=== PATIENT | female | born 1960 | race Hispanic/Latino ===

== ENCOUNTER 2024-11-11 09:53 | Inpatient (IN) | payer BC ==
[~2024-11-11] VITALS: Ht 152.4 cm; Wt 67.4 kg
--- NOTE | 2024-11-11 10:15 | ERN ---
General Chief Complaint: Multiple Complaints Stated Complaint: LOW BACK PAIN AND EXCESSIVE THIRST Time Seen by MD: 09:57 Source: patient History of Present Illness Initial Comments Patient is a 64-year-old female coming in complaining of feeling dehydrated. Per patient she was seen by a tree fruit and nut crops farmer and sent in for possible hydration. Patient has not been having any diarrhea nausea or vomiting. Allergies: Coded Allergies: No Known Drug Allergies (Unverified Allergy, Unknown, 11/11/24) Past Medical History Past Medical History: Arthritis, High Cholesterol, UTI Medical History Other: URINARY INCONTINENCE, RA Past Surgical History: Other, Surgical History Other: BACK SX ROS Dictation CONSTITUTIONAL: No chills, no fever, weakness, no diaphoresis, no malaise. HEAD/FACE: No signs of trauma. EENT: No eye pain, no blurred vision, no tearing, no double vision, no ear pain, no ear discharge, no nose pain, no nasal congestion, no throat pain, no throat swelling, no mouth pain. RESPIRATORY: No cough, no orthopnea, no SOB, no stridor, no wheezing. CARDIOVASCULAR: No chest pain, no edema, no palpitations, no syncope. GASTROINTESTINAL/ABDOMINAL: No abdominal pain, no constipation, no diarrhea, no nausea, no vomiting. GENITOURINARY: No abnormal discharge, no dysuria, no frequent urination, no hematuria. No complaints of pain in the genitals. MUSCULOSKELETAL: No back pain, no gout, no joint pain, no joint swelling, no muscle pain, no muscle stiffness, no neck pain. INTEGUMENTARY: No change in color, no change in hair/nails, no dryness, no lesion, no lumps, no rash. NEUROLOGICAL/PSYCH: No anxiety, not depressed, no emotional problem, no headache, no numbness, no pre-existing deficit, no history of seizures, no tremors, no weakness. HEMATOLOGIC/LYMPHATIC: Not anemic, no history of blood clots, no apparent bleeding, no bruising, glands not swollen. All Systems Negative, Except as Noted. Physical Exam Physical Exam Dictation VITAL SIGNS: Reviewed. GENERAL APPEARANCE: Alert, oriented x3, no acute distress, obese. HEAD AND FACE: Non-traumatic. EYES: PERRL, pink conjunctivas, eyelid no trauma, anterior chamber clear. EARS: Pinnas intact and no signs of trauma or erythema. Ear canals clear and no discharge. TMs no erythema. NOSE: No discharge, no bleeding. OROPHARYNX: Mouth normal, teeth no caries, tongue pink. Pharynx clear, no erythema. Tonsils no exudates, no abscesses noted. Mucous membrane moist. NECK: Supple, non-tender, no thyromegaly, no masses, no JVD, no bruits. BREAST: Deferred. CHEST: No tenderness, no crepitus, no paradoxical movement, no retractions. LUNGS: Clear, well-ventilated, symmetric, no rales, no wheezing, no rhonchi, no stridor, good breath sounds bilaterally. HEART: Regular rate, regular rhythm, no murmur, no gallops. VASCULAR: No peripheral edema. ABDOMEN: Soft, positive bowel sounds, nondistended, no guarding, nontender, no rebound, no masses no hepatomegaly, no splenomegaly, no Pate's sign, no hernias. RECTAL: Deferred. GENITAL: Deferred. NEUROLOGICAL: Normal speech, gross motor function intact, gross sensory func tion intact. MUSCULOSKELETAL: Neck nontender, full range of motion, back nontender, full range of motion. EXTREMITIES: Nontender, full range of motion. SKIN: Color pink, dry, no turgor, no rash, no lacerations, no abrasions, no contusions. LYMPHATICS: Deferred. Results Laboratory and Microbiology Lab and Micro Result Laboratory Tests Test 11/11/24 10:20 11/11/24 10:25 11/11/24 11:22 Urine Color COLORLESS (YELLOW) Urine Appearance CLEAR (CLEAR) Urine pH 5.5 (5.0-8.0) Urine Specific [place] 1.038 (1.001-1.031) Urine Protein NEGATIVE mg/dL (NEGATIVE) Urine Glucose (UA) >=1000 mg/dL (NEGATIVE) H Urine Ketones 40 mg/dL (NEGATIVE) H Urine Occult Blood NEGATIVE (NEGATIVE) Urine Nitrate NEGATIVE (NEGATIVE) Urine Bilirubin NEGATIVE mg/dL (NEGATIVE) Urine Urobilinogen 0.2 mg/dL (0.2-1.0) Urine Leukocyte Esterase 25 Andie/uL (NEGATIVE) H Urine RBC 11-25 /HPF (0-1) H Urine WBC 6-10 /HPF (0-1) H Urine Squamous Epithelial Cells RARE /HPF (0-2) Urine Bacteria RARE /HPF (None Seen) Urine Yeast RARE /HPF (None Seen) Urine Opiates Screen NEGATIVE (NEGATIVE) Urine Barbiturates Screen NEGATIVE (NEGATIVE) Urine Phencyclidine Screen NEGATIVE (NEGATIVE) Urine Amphetamines Screen NEGATIVE (NEGATIVE) Urine Benzodiazepines Screen NEGATIVE (NEGATIVE) Urine Cocaine Screen NEGATIVE (NEGATIVE) Urine Marijuana (THC) Screen NEGATIVE (NEGATIVE) White Blood Count 14.2 K/uL (4.8-10.8) H Red Blood Count 3.79 MIL/uL (4.00-5.50) L Hemoglobin 12.6 g/dL (12.0-16.0) Hematocrit 37.5 % (36-48) Mean Corpuscular Volume 98.9 fL (79-99) Mean Corpuscular Hemoglobin 33.2 pg (27.0-33.0) H Mean Corpuscular Hemoglobin Concent 33.6 g/dL (32.0-36.0) Red Cell Distribution Width 14.0 % (11.0-15.5) Platelet Count 238 K/uL (130-400) Mean Platelet Volume 11.3 fL (7.5-10.5) H Immature Granulocyte % (Auto) 1.6 % (0-1) H Neutrophils (%) (Auto) 83.5 % (40.0-77.0) H Lymphocytes (%) (Auto) 10.5 % (21.0-51.0) L Monocytes (%) (Auto) 3.8 % (3.0-13.0) Eosinophils (%) (Auto) 0.2 % (0.0-8.0) Basophils (%) (Auto) 0.4 % (0.0-5.0) Neutrophils # (Auto) 11.9 K/uL (1.8-7.7) H Lymphocytes # (Auto) 1.5 K/uL (1.0-4.8) Monocytes # (Auto) 0.5 K/uL (0.1-1.0) Eosinophils # (Auto) 0.03 K/uL (0.00-0.70) Basophils # (Auto) 0.05 K/uL (0.00-0.20) Absolute Immature Granulocyte (auto 0.23 K/uL (0-1) Nucleated Red Blood Cells 0.0 % (0.0-0.19) Sodium Level 137 mmol/L (136-145) Potassium Level 4.2 mmol/L (3.5-5.1) Chloride Level 101 mmol/L (101-111) Carbon Dioxide Level 24 mmol/L (21-32) Blood Urea Nitrogen 15 mg/dL (7-18) Creatinine 0.8 mg/dL (0.5-1.0) Glomerular Filtration Rate Calc 83 mL/min (>90) Random Glucose 570 mg/dL (70-105) *H Total Calcium 9.6 mg/dL (8.5-10.1) Total Creatine Kinase 81 U/L (21-232) Whole Blood Glucose 544 MG/DL (70-110) *H Bedside Glucose Comment Notified Nurse Labs Reviewed?: Yes MDM MDM: Differential diagnosis: Diabetes mellitus hyperglycemia, leukocytosis, generalized body weakness, Rationale: Tests considered and ordered secondary to shared decision making include: labs, ECG and radiology Previous outside records reviewed: Old ER visits. Risk of complication and/or morbidity or mortality of patient management: None Medications-Per medication reconciliation Need for hospitalization: Patient does meet criteria for hospitalization. Need for emergency major/minor surgery: No There are no social concerns with this patient. Prescription drug management Prescriptions will include symptomatic care Patient's prior external medical records from other ER visits were reviewed by me as indicated. Prior testing and results from previous visits were reviewed. Prior tests were taken into account with medical decision making and resource utilization, independent historian/historians were used to obtain complete m edical history. I independently interpreted the test that were performed, results were reviewed by me and considered findings on radiology if ordered. Medical management and examination interpretation discussions were had by me with other qualified healthcare professionals as indicated for the patient's care. Patient is a 64-year-old female coming in to be evaluated for generalized body weakness. Patient was sent by tree fruit and nut crops farmer. Patient has been taking ibuprofen and Motrin as well as Tylenol. She states that she has been feeling very weak. Laboratory workup disclose elevated glucose and mildly elevated white blood cell count. Patient was also found to have a urinary tract infection. Due to the findings patient will be admitted under the care of hospitalist group for ongoing management. Upon admission instructions patient also states that she just had bloody stool bowel movement. ED Course Orders Procedure Category Date Status Time Cbc With Differential LAB 11/11/24 Complete 10:00 Basic Metabolic Panel LAB 11/11/24 Complete 10:00 Urinalysis LAB 11/11/24 Complete W/Microscopic 10:00 Drug Screen Urine LAB 11/11/24 Complete 10:00 Creatine Kinase, Total LAB 11/11/24 Complete 10:00 Culture Urine BECCA 11/11/24 Logged 11:01 0.9%Nacl 1000ml (Ns PHA 11/11/24 Complete 1000ml) 11:30 Insulin Regular, PHA 11/11/24 Complete Human 3ml (Humulin R 11:30 Occult Blood Stool LAB 11/11/24 Logged Single Only 11:22 Ketone Blood LAB 11/11/24 Verified Quantitative 11:33 Arterial Blood Gas + RT 11/11/24 Verified 11:33 Current Medications Medications (Trade) Dose Ordered Sig/Rajani Route PRN Reason Start Time Stop Time Status Last Admin Dose Admin Insulin Human Regular (humuLIN R 100 UNIT/ML 3ML) 5 unit ONCE ONCE SQ 11/11/24 11:30 11/11/24 11:31 DC Sodium Chloride 1,000 ml @ 0 mls/hr ONCE ONCE IV 11/11/24 11:30 11/11/24 11:31 DC Vital Signs Date Time Temp Pulse Resp B/P (MAP) Pulse Ox O2 Delivery O2 Flow Rate FiO2 11/11/24 09:55 98.1 84 14 167/89 98 Room Air 0 Critical Care Note Comments Critical Care Procedure Note Authorized and Performed by: Total critical care time: Approximately 36 minutes Due to a high probability of clinically significant, life threatening deterioration, the patient required my highest level of preparedness to intervene emergently and I personally spent this critical care time directly and personally managing the patient. This critical care time included obtaining a history; examining the patient; pulse oximetry; ordering and review of studies; arranging urgent treatment with development of a management plan; evaluation of patient's response to treatment; frequent reassessment; and, discussions with other providers. This critical care time was performed to assess and manage the high probability of imminent, life-threatening deterioration that could result in multi-organ failure. It was exclusive of separately billable procedures and treating other patients and teaching time. Please see MDM section and the rest of the note for further information on patient assessment and treatment. DX & DISP Disposition: Inpatient Decision to Admit Time: 11:35 Departure Impression: Primary Impression: Uncontrolled diabetes mellitus with hyperglycemia Additional Impressions: UTI (urinary tract infection), GI bleed Condition: Stable Referrals: SELF,REFERRAL (PCP) JIM REED MD Nov 11, 2024 10:15
[2024-11-11 10:37] LABS: APPEARANCE,URINE CLEAR (CLEAR); BACTERIA,URINE RARE /HPF (None Seen); BILIRUBIN,URINE NEGATIVE (NEGATIVE); COLOR,URINE COLORLESS (YELLOW); GLUCOSE, URINE (UA) >=1000 mg/dL (NEGATIVE); KETONES,URINE 40 mg/dL (NEGATIVE); LEUKOCYTE ESTERASE ,URINE 25 Leu/uL (NEGATIVE); MUCUS,URINE RARE LPF (None Seen); NITRATE,URINE NEGATIVE (NEGATIVE); OCCULT BLOOD,URINE NEGATIVE (NEGATIVE); PH,URINE 5.5 (5.0-8.0); PROTEIN,URINE NEGATIVE (NEGATIVE); SQUAMOUS EPITHELIAL CELL,UR RARE /HPF (0-2); UROBILINOGEN,URINE 0.2 mg/dL (0.2-1.0); YEAST,URINE BUDDING RARE /HPF (None Seen)
[2024-11-11 10:38] LABS: AMPHET/METH SCREEN,URINE NEGATIVE (NEGATIVE); BARBITURATE SCREEN, URINE NEGATIVE (NEGATIVE); BENZODIAZEPINES SCREEN,URINE NEGATIVE (NEGATIVE); CANNABINOID SCREEN,URINE NEGATIVE (NEGATIVE); COCAINE SCREEN,URINE NEGATIVE (NEGATIVE); OPIATE SCREEN,URINE NEGATIVE (NEGATIVE); PHENCYCLIDINE SCREEN,URINE NEGATIVE (NEGATIVE)
[2024-11-11 10:40] LABS: BASOPHILS # (AUTO) 0.05 K/uL (0.00-0.20); BASOPHILS % (AUTO) 0.4 % (0.0-5.0); EOSINOPHILS # (AUTO) 0.03 K/uL (0.00-0.70); EOSINOPHILS % (AUTO) 0.2 % (0.0-8.0); HEMATOCRIT 37.5 % (36-48); IMMATURE GRANULOCYTE ABSOLUTE 0.23 K/uL (0-1); LYMPHOCYTES # (AUTO) 1.5 K/uL (1.0-4.8); LYMPHOCYTES % (AUTO) 10.5 % (21.0-51.0); MEAN CORPUSCULAR HEMOGLOBIN 33.2 pg (27.0-33.0); MEAN CORPUSCULAR HGB CONC 33.6 g/dL (32.0-36.0); MEAN CORPUSCULAR VOLUME 98.9 fL (79-99); MONOCYTES # (AUTO) 0.5 K/uL (0.1-1.0); MONOCYTES % (AUTO) 3.8 % (3.0-13.0); NEUTROPHILS # (AUTO) 11.9 K/uL (1.8-7.7); NEUTROPHILS % (AUTO) 83.5 % (40.0-77.0); PLATELET COUNT (AUTO) 238 K/uL (130-400); RED BLOOD CELL COUNT(AUTO) 3.79 MIL/uL (4.00-5.50); WHITE BLOOD COUNT (AUTO) 14.2 K/uL (4.8-10.8)
[2024-11-11 11:01] LABS: CREATININE 0.8 mg/dL (0.5-1.0); POTASSIUM 4.2 mmol/L (3.5-5.1)
[2024-11-11] MEDS: INSULIN humuLIN R 100 UNIT/ML 3ML SQ ONE (11:54)
[2024-11-11] MEDS: PANTOPrazole 40 MG/VIAL IVP ONE (11:59)
[2024-11-11] MEDS: 0.9%NACL 1000ML 1,000 ML IV ONE (12:00)
[2024-11-11] MEDS ORDERED: hydrALAZine 20MG/ML VIAL IV PRN (12:00)
[2024-11-11 12:15] LABS: HEMOGLOBIN A1C 10.7 % (4.0-6.0)
[2024-11-11] MEDS ORDERED: PoTASSium chloRIDE 10MEQ/100ML 100 ML IV PRN (12:30)
[2024-11-11] MEDS ORDERED: DEXTROSE 5 %-0.45 % NACL 1,000 ML IV SCH (12:30)
[2024-11-11] MEDS ORDERED: PoTASSium chloRIDE 20MEQ/10ML 20 MEQ in 0.9%NACL 1000ML 1,000 ML IV SCH (12:30)
[2024-11-11 12:35] LABS: BILIRUBIN,DIRECT 0.2 mg/dL (0.0-0.3); BILIRUBIN,TOTAL 0.7 mg/dL (0.2-1.0); MAGNESIUM 2.1 mg/dL (1.80-2.40); TOTAL PROTEIN, SERUM 7.5 g/dL (6.0-8.3)
--- NOTE | 2024-11-11 12:37 | HP ---
[facility] HISTORY [facility] PHYS[facility] Date of Service: Nov 11, 2024 Time of Service: 12:26 HISTORY OF PRESENT ILLNESS: Date of service: 11/11/2024, patient was seen in ER room 11 64-year-old male with underlying history of hyperlipidemia, rheumatoid arthritis diagnosed in 07/2024, history of overactive bladder who presented to the ER for further evaluation of generalized malaise, increased thirst, polyuria ongoing for the past several days. Patient denies previous history of type 2 diabetes mellitus. States that she is followed by Rheumatology as outpatient and was diagnosed with rheumatoid arthritis in 07/2024. She is currently maintained on outpatient regimen with methotrexate, prednisone, and hydroxychloroquine. She has been started on prednisone about a month ago. She is not sure of the dose of prednisone that she takes. Over the last several days, she has been having increased thirst and frequent urination. She also reports having history of unsteady gait ongoing since 07/2024. She denies any neck pain. She has had recurrent fall with last fall being about three weeks ago. Denies trauma to the head. With regards to underlying rheumatoid arthritis, patient does have polyarthritis especially involving the knee joint. She has a history of moderate pain requiring pain regimen with Tylenol and ibuprofen as outpatient. She denies any history of peptic ulcer disease. Today she noticed that while she was urinating, she may have had blood in the stool. She does have history of hemorrhoids as well. On presentation to hospital, patient was noted to be afebrile with T-max of 98.1 F, heart rate of 84, blood pressure of 167/89. [place] [address], hemoglobin 12.6, platelet count of 461401. BMP remarkable for sodium of 137, potassium 4.2, BUN of 15, creatinine of 0.8, blood glucose of 570, blood ketones of 2.7, lactic acid of 1.5. Patient will be admitted for further treatment and management of severe hyperglycemia in the setting of diabetic ketoacidosis likely precipitated by steroid use and underlying history of untreated type 2 diabetes mellitus. Patient will be admitted to ICU and will be placed on insulin drip. Consultation with endocrinology and critical Care will be requested. We will monitor closely for any signs of GI bleeding as well. REVIEW OF SYSTEMS CONSTITUTIONAL: Generalized fatigue, debility NEUROLOGICAL: Denies headache, amaurosis fugax, motor weakness, sensory deficit, vertigo/spinning sensation, gait abnormalities, or tremors. ENT: No hearing loss, otalgia, otorrhea, rhinitis, rhinorrhea, hoarseness, or sore throat. CARDIOVASCULAR: Denies any exertional angina, dyspnea on exertion, orthopnea, paroxysmal nocturnal dyspnea, palpitations, life-threatening arrhythmias, claudication. PULMONARY: Denies any shortness of breath, cough, phlegm/sputum, hemoptysis, pleuritic chest pain. SLEEP: Denies morning headaches, daytime somnolence or napping. Denies difficulty falling asleep, staying asleep, waking from sleep. Denies knowledge of snoring. GASTROINTESTINAL: Possible hematochezia today GENITOURINARY: Denies frequency, urgency, nocturia, hematuria or incontinence (Storage/Irritative symptoms.) Low urinary stream, straining to void, urinary intermittency or hesitancy, splitting of the voiding stream, terminal dribbling. ENDOCRINOLOGIC: Urinary frequency, urgency, increased thirst HEMATOLOGIC: Denies thrombophilia/previous clots, or coagulopathy/bleeding disorders. ONCOLOGIC: Denies personal history of malignancy. DERMATOLOGIC: Denies rashes or pruritus. PSYCHIATRIC: Denies any suicidal or homicidal ideation. Denies hallucinations. PAST MEDICAL HISTORY: Hyperlipidemia, rheumatoid arthritis diagnosed in 07/2024, history of chronic pain secondary to rheumatoid arthritis, PAST SURGICAL HISTORY: in 1981 and 1984 PAST SOCIAL HISTORY: Currently denies active smoking or alcohol consumption FAMILY HISTORY: Reports family history of diabetes in the family Allergies: No known drug allergies Home medications: Patient did not bring any of her home medications, reports she has been maintained on outpatient treatment with prednisone, methotrexate, hydroxychloroquine, atorvastatin, she uses Tylenol and ibuprofen for pain for about a year Coded Allergies: No Known Drug Allergies (Unverified Allergy, Unknown, 11/11/24) PHYSICAL EXAM GENERAL APPEARANCE: The patient is awake, alert, and oriented, in no acute cardiopulmonary distress. NEUROLOGICAL: Cranial nerves II-XII grossly intact. Neurological examination is nonfocal HEENT: Face is symmetric. Pupils are equal and reactive. Extraocular movements are intact. NECK: Supple. No JVD. No thyromegaly. No submental, submandibular, pre- /postauricular, occipital or supraclavicular lymphadenopathy. CHEST: Normal chest expansion. No Telemetry. LUNGS: Absence of any rales, rhonchi or any wheezing. CARDIOVASCULAR: Regular. S1 and S2 normal. No appreciable rubs, murmurs or gallops. ABDOMEN: Soft, nontender, and nondistended. There is no rebound, voluntary g uarding, or rigidity. : Deferred. No Neil. EXTREMITIES: She has scattered bruising involving the bilateral upper extremities Vital Sign (Last 24 Hours) 11/11/24 11:35 Temp 98.2 Pulse 76 Resp 19 B/P (MAP) 174/84 Pulse Ox 99 O2 Delivery Room Air* O2 Flow Rate 0 FiO2 21 LABS: Laboratory: Test 11/11/24 11:38 11/11/24 11:22 11/11/24 10:25 11/11/24 10:20 Range/Units Hemoglobin A1c 10.7 H 4.0-6.0 % Estimated Average Glucose (eAG) 260 H 70-126 mg/dL Whole Blood Ketones Quantitative 2.7 H 0.0-0.6 mmol/L Lactic Acid Level 1.5 0.8-2.5 mmol/L Whole Blood Glucose 544 *H 70-110 MG/DL Bedside Glucose Comment Notified Nurse White Blood Count 14.2 H 4.8-10.8 K/uL Red Blood Count 3.79 L 4.00-5.50 MIL/uL Hemoglobin 12.6 12.0-16.0 g/dL Hematocrit 37.5 36-48 % Mean Corpuscular Volume 98.9 79-99 fL Mean Corpuscular Hemoglobin 33.2 H 27.0-33.0 pg Mean Corpuscular Hemoglobin Concent 33.6 32.0-36.0 g/dL Red Cell Distribution Width 14.0 11.0-15.5 % Platelet Count 238 130-400 K/uL Mean Platelet Volume 11.3 H 7.5-10.5 fL Immature Granulocyte % (Auto) 1.6 H 0-1 % Neutrophils (%) (Auto) 83.5 H 40.0-77.0 % Lymphocytes (%) (Auto) 10.5 L 21.0-51.0 % Monocytes (%) (Auto) 3.8 3.0-13.0 % Eosinophils (%) (Auto) 0.2 0.0-8.0 % Basophils (%) (Auto) 0.4 0.0-5.0 % Neutrophils # (Auto) 11.9 H 1.8-7.7 K/uL Lymphocytes # (Auto) 1.5 1.0-4.8 K/uL Monocytes # (Auto) 0.5 0.1-1.0 K/uL Eosinophils # (Auto) 0.03 0.00-0.70 K/uL Basophils # (Auto) 0.05 0.00-0.20 K/uL Absolute Immature Granulocyte (auto 0.23 0-1 K/uL Nucleated Red Blood Cells 0.0 0.0-0.19 % Sodium Level 137 136-145 mmol/L Potassium Level 4.2 3.5-5.1 mmol/L Chloride Level 101 101-111 mmol/L Carbon Dioxide Level 24 21-32 mmol/L Blood Urea Nitrogen 15 7-18 mg/dL Creatinine 0.8 0.5-1.0 mg/dL Glomerular Filtration Rate Calc 83 >90 mL/min Random Glucose 570 *H 70-105 mg/dL Total Calcium 9.6 8.5-10.1 mg/dL Total Creatine Kinase 81 21-232 U/L Urine Color COLORLESS YELLOW Urine Appearance CLEAR CLEAR Urine pH 5.5 5.0-8.0 Urine Specific [place] 1.038 H 1.001-1.031 Urine Protein NEGATIVE NEGATIVE mg/dL Urine Glucose (UA) >=1000 H NEGATIVE mg/dL Urine Ketones 40 H NEGATIVE mg/dL Urine Occult Blood NEGATIVE NEGATIVE Urine Nitrate NEGATIVE NEGATIVE Urine Bilirubin NEGATIVE NEGATIVE mg/dL Urine Urobilinogen 0.2 0.2-1.0 mg/dL Urine Leukocyte Esterase 25 H NEGATIVE Andie/uL Urine RBC 11-25 H 0-1 /HPF Urine WBC 6-10 H 0-1 /HPF Urine Squamous Epithelial Cells RARE 0-2 /HPF Urine Bacteria RARE None Seen /HPF Urine Yeast RARE None Seen /HPF Urine Opiates Screen NEGATIVE NEGATIVE Urine Barbiturates Screen NEGATIVE NEGATIVE Urine Phencyclidine Screen NEGATIVE NEGATIVE Urine Amphetamines Screen NEGATIVE NEGATIVE Urine Benzodiazepines Screen NEGATIVE NEGATIVE Urine Cocaine Screen NEGATIVE NEGATIVE Urine Marijuana (THC) Screen NEGATIVE NEGATIVE Current Medications Medications (Trade) Dose Ordered Sig/Rajani Route PRN Reason Start Time Stop Time Status Last Admin Dose Admin Acetaminophen (TYLenol 325MG TAB) 650 mg Q6H PRN PO MILD PAIN (1-3) 11/11/24 12:00 12/11/24 11:59 Ceftriaxone Sodium (ROCEphine 1G INJ) 1 gm DAILY IVPB 11/12/24 09:00 11/22/24 08:59 Dextrose/Sodium Chloride 1,000 ml @ 0 mls/hr AD IV 11/11/24 12:30 12/11/24 12:29 UNV Enoxaparin Sodium (Lovenox) 30 mg DAILY SQ 11/12/24 09:00 11/11/24 12:04 DC Hydralazine HCl (APRESOLine 20MG INJ) 10 mg Q6H PRN IV ADMINISTER FOR SBP > 170 11/11/24 12:00 12/11/24 11:59 Insulin Human Regular (humuLIN R 100 UNIT/ML 3ML) INSULIN SLIDING SCAL... ACHS SQ 11/11/24 16:30 11/11/24 12:06 DC Insulin Human Regular (humuLIN R 100 UNIT/ML 3ML) INSULIN SLIDING SCAL... ACHS SQ 11/11/24 16:30 11/11/24 12:22 DC Insulin Human Regular 100 unit/ Sodium Chloride 101 ml @ 0 mls/hr PROTOCOL IV 11/11/24 12:30 12/11/24 12:29 UNV Magnesium Sulfate 50 ml @ 0 mls/hr PROTOCOL IV 11/11/24 12:30 12/11/24 12:29 UNV Multivitamins Therapeutic (Multivitamin Tablet) 1 tab DAILY PO 11/12/24 09:00 12/12/24 08:59 Ondansetron HCl (zoFRAN 4MG INJ) 4 mg Q6H PRN IVP NAUSEA/VOMITING 11/11/24 12:00 12/11/24 11:59 Pantoprazole Sodium (PROTonix 40MG INJ) 40 mg BID IVP 11/11/24 21:00 12/11/24 20:59 Potassium Chloride 20 meq/ Sodium Chloride 1,010 ml @ 0 mls/hr PROTOCOL IV 11/11/24 12:30 12/11/24 12:29 UNV Potassium Chloride/Dextrose/ Sod Cl 1,000 ml @ 0 mls/hr AD IV 11/11/24 12:30 12/11/24 12:29 UNV Potassium Chloride 100 ml @ 0 mls/hr PROTOCOL PRN IV DKA POTASSIUM REPLACEMENT 11/11/24 12:30 12/11/24 12:29 UNV Sodium Chloride 1,000 ml @ 75 mls/hr [id number] IV 11/11/24 12:00 12/11/24 11:59 Sodium Chloride 1,000 ml @ 200 mls/hr PROTOCOL IV 11/11/24 12:30 12/11/24 12:29 UNV DIAGNOSTICS / RADIOLOGY: Chest x-ray and CT head without contrast is pending ASSESSMENT: Severe hyperglycemia with diabetic ketoacidosis, POA History of uncontrolled type 2 diabetes mellitus, POA 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, POA Leukocytosis, POA Urinary tract infection, mild, POA History of rheumatoid arthritis maintained on outpatient methotrexate, POA Rule out hematochezia, POA History of hemorrhoids, POA Hyperlipidemia, POA Elevated blood pressure, POA History of recurrent falls, POA History of NSAID use as outpatient for pain control, POA PLAN: 64-year-old female with history of rheumatoid arthritis and use of prednisone as outpatient presenting with severe hyperglycemia with elevated blood ketones, ketonuria, concerning for diabetic ketoacidosis Patient will be admitted to ICU We will initiate patient on insulin drip and IV fluid resuscitation per DKA protocol BMP will be checked q.4 hours, potassium and magnesium will be aggressively repleted Consultation with critical Care will be requested Prednisone will be held today until sugars improve Patient's case was discussed with Dr. Florian with endocrinology, appreciate recommendations We will keep patient on IV Rocephin for management of urinary tract infection Patient reports having history of recurrent falls since 07/2024 with gait unsteadiness, last fall was three weeks ago, denies any head trauma, denies any neck pain or cervical radiculopathy, we will follow up with CT head without contrast to rule out any intracranial process, we will request consultation with Physical therapy tomorrow We will keep patient on IV Protonix 40 mg b.i.d., patient reports that she might have been having blood in the stool, we will check stool for occult blood, she has a history of hemorrhoids, she also takes ibuprofen intermittently for pain control for about a year, denies previous history of peptic ulcer disease, may consider GI evaluation this admission, discussed with patient avoid any NSAID use especially when she is taking prednisone as well H&H will be monitored closely We will keep patient on DVT prophylaxis with SCDs, once GI bleeding is ruled out, we can consider starting pharmacologic DVT prophylaxis All labs will be repeated in the morning Patient denies previous history of hypertension, blood pressure is noted to be elevated in the ER, we will keep an eye on blood pressure trend during hospital course, if continues to be elevated, we will start antihypertensive therapy Plan of Care was discussed with patient and family at bedside, Jose Davidson MD Prognosis is guarded for the patient, Jose Davidson MD Advanced Care Planning: Which of the following were discussed: Hospice care: Yes __ No X__ Therapeutic options: Yes _X_ No __ Advance directives: Yes _X_ No __ Other discussions: Discussed with who?: Patient Voluntary nature of this service was explained to the patient? Yes _x_ No __ Amount of time spent: 20 minutes JOSE DAVIDSON MD Nov 11, 2024 12:37
[2024-11-11] MEDS: acetaMINOPHEN 325 MG TAB PO PRN (12:39)
[2024-11-11] MEDS: cefTRIAXone 1G VIAL IVPB ONE (12:40)
[2024-11-11] MEDS: 0.9%NACL 1000ML 1,000 ML IV SCH ×2 (12:40→15:51)
[2024-11-11] MEDS ORDERED: OXYB10TA30 PO (13:00)
[2024-11-11] MEDS ORDERED: METH2.5T6 PO (13:00)
[2024-11-11] MEDS ORDERED: PRED5TAB PO (13:00)
[2024-11-11] MEDS ORDERED: FOLI0.4T6 PO (13:00)
[2024-11-11] MEDS ORDERED: ATOR20TA65 PO (13:00)
[2024-11-11] MEDS ORDERED: HYDR200T75 PO (13:00)
--- NOTE | 2024-11-11 13:21 | NUR ---
HOME MEDS ENTERED, ONLY ONE MISSING IS ALBUTEROL INHALER
--- NOTE | 2024-11-11 13:41 | HMCIMG ---
CHEST 1VW HISTORY: Developing pneumonia COMPARISON: None FINDINGS: A frontal projection of the chest was obtained. Mild bilateral pulmonary infiltrates are seen may be related to mild pulmonary vascular congestion with possible superimposed pneumonitis. The heart is borderline enlarged. Degenerative changes are seen. No evidence of aortic calcification is seen. IMPRESSION: 1. Mild bilateral pulmonary infiltrates are seen may be related to mild pulmonary vascular congestion with possible superimposed pneumonitis.
--- NOTE | 2024-11-11 13:47 | NUR ---
DCP: HOME Pt currently lives with her mother. Pt does not have any DME, home health, or provider services. Pt states in the mornings when she wakes up she uses a walking stick for about "an hour to warm up" and then is ok. Pt states that she can complete ADLs independently. PCP is Dr. Loreta Cespedes and uses [facility] for any RX needs. At [place] pt will go home and family will assist with transportation. Addendum: 11/11/24 at 1350 by YADIEL BEARDEN SS Amended: Links added.
--- NOTE | 2024-11-11 13:51 | HMCIMG ---
CT HEAD/BRAIN W/O CONTRAST HISTORY: Recurrent falls COMPARISON: None TECHNIQUE: Multiple sequential axial images of the head were obtained from the base of the skull through vertex. Patient was not given contrast through intravenous route. FINDINGS: The ventricles and extraventricular CSF spaces are nondilated for patient's age. There is no midline shift, mass effect or herniation. No acute intracranial bleed is seen. Left maxillary sinus changes are seen with mucoperiosteal thickening and air-fluid level. Bilateral basal ganglia calcifications are seen. IMPRESSION: 1. No acute intracranial bleed is seen. CT was performed with one or more following dose reduction techniques: automated exposure control, adjustment of the mA and kv according to patient's size, or use of a iterative reconstruction technique.
[2024-11-11 14:42] LABS: CREATININE 0.5 mg/dL (0.5-1.0); POTASSIUM 3.7 mmol/L (3.5-5.1)
[2024-11-11 14:54] LABS: INR 1.13 (0.85-1.15); PROTHROMBIN TIME 11.8 SEC (9.6-11.6)
[2024-11-11 15:07] LABS: ABG BASE EXCESS -4.4 mmol/L (-2.0-3.0); ABG HCO3 18.3 mmol/L (21.0-28.0); ABG OXYGEN SATURATION 97.8 % (94.0-98.0); ABG PCO2 28 mmHg (32-45); ABG PH 7.431 (7.350-7.450); PO2, ARTERIAL BG 98.9 mmHg (83.0-108.0); VENT MODE, BG RA (ROOM AIR)
[2024-11-11] MEDS: INSULIN REGULAR, HUMAN 3ML 100 UNIT in 0.9%NACL 100ML 100 ML IV SCH (15:51)
[2024-11-11] MEDS ORDERED: INSULIN humuLIN R 100 UNIT/ML 3ML SQ SCH ×2 (16:30)
[2024-11-11 17:49] LABS: PARTIAL THROMBOPLASTIN TIME 21.6 SEC (26.3-35.5)
[2024-11-11] MEDS: D5W-1/2 NS/20MEQ KCL 1,000 ML IV SCH (18:38)
[2024-11-11 19:07] LABS: CREATININE 0.4 mg/dL (0.5-1.0); POTASSIUM 3.4 mmol/L (3.5-5.1)
--- NOTE | 2024-11-11 19:52 | CONS ---
[facility] CONSULTATION NOTE Date Patient Seen: Nov 11, 2024 Time of Visit: 19:44 Supervising Physician: DR. RACHEL GARCIA Reason for Consultation: CRITICAL CARE MANAGEMENT Primary Care Physician: DR. DEREK FERNANDEZ Outpatient Specialists: [ ] Inpatient Consults: [ ] PROBLEM LIST: 1. DIABETIC KETOACIDOSIS, POA 2. ACUTE COMPLICATED CYSTITIS, POA 3. UTI, P.O.A 4. ESSENTIAL HYPERTENSION POA HPI: Patient is a 64-year-old female with past medical history rheumatoid arthritis, hyperlipidemia, and a surgical history of x2, right foot fracture repair, presented to emergency department complaining of generalized body weakness for two days. Patient reports that for the past two days, she has been experiencing generalized body weakness. Patient denies fever, chills, nausea, vomiting, diarrhea, cough, chest pain, dizziness, or any other symptoms. The workup in the emergency department showed blood pressure 167/89, WBC of 14.2, ESR of 37, potassium of 3.4, glucose of 269, ketone 2.7, calculated anion gap of 16.7. In the emergency department, patient was diagnosed with DKA and was started on insulin drip and IV fluid. In addition, career based intervention coordinator and critical Care have been consulted. Patient will be admitted in ICU for further evaluation and treatment. PAST MEDICAL HX: see above PAST SURGICAL HX: noncontributory SOCIAL HISTORY: No tobacco, ETOH, or illicit drug use Coded Allergies: No Known Drug Allergies (Unverified Allergy, Unknown, 11/11/24) REVIEW OF SYSTEMS: 12 point ROS reviewed with patient. Pertinent positives mentioned above. Otherw ise negative. PHYSICAL EXAM: GENERAL: alert, weak, awake oriented x 3 HEENT: EOMI, Sclera non icteric, moist mucosa NECK: Supple, no JVD, trachea midline LUNGS: Clear breath sounds bilaterally. No wheezes HEART: Regular rate and rhythm. Normal S1 and S2, without murmurs ABD: Abdomen soft, nontender. Bowel sounds present EXT: No clubbing cyanosis or edema NEURO: Alert and oriented to person, follows commands Vital Signs (last 8hr) Date Time Temp Pulse Resp B/P (MAP) Pulse Ox O2 Delivery O2 Flow Rate FiO2 11/11/24 17:45 98.2 65 15 178/69 99 Room Air* 0 21 LABS: Hematology Labs: Test 11/11/24 14:13 11/11/24 11:38 11/11/24 10:25 Range/Units Hemoglobin 11.5 L 12.0-16.0 g/dL Hematocrit 34.0 L 36-48 % Erythrocyte Sedimentation Rate 37 H 0-30 MM/HR White Blood Count 14.2 H 4.8-10.8 K/uL Red Blood Count 3.79 L 4.00-5.50 MIL/uL Mean Corpuscular Volume 98.9 79-99 fL Mean Corpuscular Hemoglobin 33.2 H 27.0-33.0 pg Mean Corpuscular Hemoglobin Concent 33.6 32.0-36.0 g/dL Red Cell Distribution Width 14.0 11.0-15.5 % Platelet Count 238 130-400 K/uL Mean Platelet Volume 11.3 H 7.5-10.5 fL Immature Granulocyte % (Auto) 1.6 H 0-1 % Neutrophils (%) (Auto) 83.5 H 40.0-77.0 % Lymphocytes (%) (Auto) 10.5 L 21.0-51.0 % Monocytes (%) (Auto) 3.8 3.0-13.0 % Eosinophils (%) (Auto) 0.2 0.0-8.0 % Basophils (%) (Auto) 0.4 0.0-5.0 % Neutrophils # (Auto) 11.9 H 1.8-7.7 K/uL Lymphocytes # (Auto) 1.5 1.0-4.8 K/uL Monocytes # (Auto) 0.5 0.1-1.0 K/uL Eosinophils # (Auto) 0.03 0.00-0.70 K/uL Basophils # (Auto) 0.05 0.00-0.20 K/uL Absolute Immature Granulocyte (auto 0.23 0-1 K/uL Nucleated Red Blood Cells 0.0 0.0-0.19 % Chemistry Labs: Test 11/11/24 19:35 11/11/24 18:15 11/11/24 14:13 11/11/24 11:38 Range/Units Whole Blood Glucose 170 H 70-110 MG/DL Sodium Level 142 136-145 mmol/L Potassium Level 3.4 L 3.5-5.1 mmol/L Chloride Level 107 101-111 mmol/L Carbon Dioxide Level 25 21-32 mmol/L Blood Urea Nitrogen 11 7-18 mg/dL Creatinine 0.4 L 0.5-1.0 mg/dL Glomerular Filtration Rate Calc 111 >90 mL/min Random Glucose 181 H 70-105 mg/dL Total Calcium 8.1 L 8.5-10.1 mg/dL B-Type Natriuretic Peptide 17 0-100 pg/mL Hemoglobin A1c 10.7 H 4.0-6.0 % Estimated Average Glucose (eAG) 260 H 70-126 mg/dL Whole Blood Ketones Quantitative 2.7 H 0.0-0.6 mmol/L Lactic Acid Level 1.5 0.8-2.5 mmol/L Magnesium Level 2.10 1.80-2.40 mg/dL Total Bilirubin 0.7 0.2-1.0 mg/dL Direct Bilirubin 0.2 0.0-0.3 mg/dL Aspartate Amino Transf (AST/SGOT) 25 10-37 U/L Alanine Aminotransferase (ALT/SGPT) 49 12-78 U/L Alkaline Phosphatase 119 50-136 U/L Lactate Dehydrogenase 417 H 81-234 U/L C-Reactive Protein, Quantitative 28.40 H 0.5-3.0 mg/L Total Protein 7.5 6.0-8.3 g/dL Albumin 4.0 3.5-5.0 g/dL Procalcitonin < 0.05 L 0.05-0.5 ng/mL Test 11/11/24 11:22 11/11/24 10:25 Range/Units Bedside Glucose Comment Notified Nurse Total Creatine Kinase 81 21-232 U/L Coagulation Labs: Test 11/11/24 14:13 Range/Units Prothrombin Time 11.8 H 9.6-11.6 SEC Prothromb Time International Ratio 1.13 0.85-1.15 Activated Partial Thromboplast Time 21.6 L 26.3-35.5 SEC DIAGNOSTICS / RADIOLOGY RESULTS: [ ] PLAN NEURO: Minimize central acting medications as possible. Fall Precautions. Well lighted room through the day and minimize interruptions through the night to prevent acute delirium. PULMONARY: Supplemental 02 as needed Titrate Fio2 to keep Spo2 > or = 90% DuoNebs and CPT as needed IS hourly while awake for pulmonary hygiene Out of bed to chair as tolerated VAP Bundle Vent/BIPAP Settings: [ ] Driving pressure: [ ] P Plat: [ ] Static C: [ ] Static R: [ ] P/F Ratio: [ ] CARDIOVASCULAR: Follow hemodynamics. Titrate vasopressor to keep MAP >65 or systolic blood pressure >95mmHg DIPS: [ ] LINES: [ ] GI & NUTRITION: Continue nutritional support Aspirations precautions Prokinetic agents and laxatives as needed KIDNEYS & ELECTROLYTES: Strict monitoring of intake and output Daily weights Avoid nephrotoxic agents Monitor electrolytes and replace as needed Goal urine output of 30mL/hr or 0.5mL/kg/hr Urine output: [ ] Fluid Balance: [ ] ENDOCRINE: Maintain blood glucose between 100-180 at all times. Insulin sliding scale for blood glucose management Concerning insulin drip until gap is closed INFECTIOUS DISEASE: Trend temperature. Nugent-culture if febrile. Micro: [ ] Antibiotics: Ceftriaxone 2 g IV daily HEMATOLOGY & COAGULATION: Monitor H&H. Keep Hgb > 7 Transfuse 1 unit of PRBC for Hgb < 7 Transfuse 1 pack of platelets of platelets < 20, 000 Watch for any signs and symptoms of bleeding SKIN: Pressure ulcer prevention per facility protocol Rehab: PT/OT Prophylaxis: GI: Famotidine DVT: SCDs Code Status: Full Resuscitation Disposition: Admitted in ICU Other: Total patient care time exceeds 35 minutes excluding all procedures. Case was discussed and seen with my supervising physician, Dr.Jairo Garcia. The above plan was formulated and agreed upon. RACHEAL WILLIS Nov 11, 2024 19:52
[2024-11-11] MEDS ORDERED: PoTASSium chl 10% ELIXIR 20MEQ 20 MEQ/15 ML UDCUP PO PRN (20:00)
[2024-11-11] MEDS: PANTOPrazole 40 MG/VIAL IVP SCH (21:01)
--- NOTE | 2024-11-11 21:48 | NUR ---
HAND OFF REPORT GIVEN TO LISA TAYOLR. ROOM IS DIRTY AT THE MOMENT, ICU NURSE WILL CALL WHEN ROOM IS READY.
[2024-11-11 22:08] LABS: HEMATOCRIT 30.3 % (36-48)
[2024-11-11 22:22] LABS: CREATININE 0.5 mg/dL (0.5-1.0); POTASSIUM 3.6 mmol/L (3.5-5.1)
[2024-11-11 22:52] VITALS: BP 157/75; PULSE 72; RESP 18; TEMP 98.6
[2024-11-12] VITALS (27 sets, daily range): BP systolic 132–164; BP diastolic 57–83; PULSE 69–89; RESP 12–29; TEMP 97.7–98.7; O2SAT 96–98
--- NOTE | 2024-11-12 | NUR ---
Paged benchmark regarding patients pain. Patient is stating that her skin is very sensitive. When blood pressure cuff cycles she states that pain is 10 out 10. She describes when I use the lancets to check her blood sugar as "being rough". Addendum: 11/12/24 at 0007 by LISA BERTRAND RN RN Spoke to Noemy Montiel NP from critical care. Provider ordered Toradol IV q6hr prn for break through pain.
[2024-11-12] MEDS: ketOROlac 15MG/ML VIAL (15MG/ML) IV PRN (00:20)
[2024-11-12] MEDS: PoTASSium chloRIDE 20MEQ ER 20 MEQ ERTAB PO PRN (00:21)
[2024-11-12 01:09] LABS: BASOPHILS # (AUTO) 0.03 K/uL (0.00-0.20); BASOPHILS % (AUTO) 0.3 % (0.0-5.0); EOSINOPHILS # (AUTO) 0.08 K/uL (0.00-0.70); EOSINOPHILS % (AUTO) 0.8 % (0.0-8.0); HEMATOCRIT 29.4 % (36-48); IMMATURE GRANULOCYTE ABSOLUTE 0.15 K/uL (0-1); LYMPHOCYTES # (AUTO) 2.6 K/uL (1.0-4.8); LYMPHOCYTES % (AUTO) 25.1 % (21.0-51.0); MEAN CORPUSCULAR HEMOGLOBIN 33.6 pg (27.0-33.0); MEAN CORPUSCULAR HGB CONC 34.4 g/dL (32.0-36.0); MEAN CORPUSCULAR VOLUME 97.7 fL (79-99); MONOCYTES # (AUTO) 0.5 K/uL (0.1-1.0); MONOCYTES % (AUTO) 4.9 % (3.0-13.0); NEUTROPHILS # (AUTO) 6.9 K/uL (1.8-7.7); NEUTROPHILS % (AUTO) 67.4 % (40.0-77.0); PLATELET COUNT (AUTO) 188 K/uL (130-400); RED BLOOD CELL COUNT(AUTO) 3.01 MIL/uL (4.00-5.50); RED CELL DISTRIBUTION WIDTH 14.1 % (11.0-15.5); WHITE BLOOD COUNT (AUTO) 10.2 K/uL (4.8-10.8)
[2024-11-12 01:23] LABS: CREATININE 0.4 mg/dL (0.5-1.0); MAGNESIUM 1.5 mg/dL (1.80-2.40); POTASSIUM 3.3 mmol/L (3.5-5.1)
[2024-11-12] MEDS: MAGNESIUM 2GM PREMIX 50ML 50 ML IV SCH (01:39)
[2024-11-12 06:09] LABS: HEMATOCRIT 29.5 % (36-48); MEAN CORPUSCULAR HEMOGLOBIN 33.1 pg (27.0-33.0); MEAN CORPUSCULAR HGB CONC 33.6 g/dL (32.0-36.0); MEAN CORPUSCULAR VOLUME 98.7 fL (79-99); RED BLOOD CELL COUNT(AUTO) 2.99 MIL/uL (4.00-5.50); WHITE BLOOD COUNT (AUTO) 10.4 K/uL (4.8-10.8)
--- NOTE | 2024-11-12 06:15 | NUR ---
PATIENT HAS SAMPLE CONTAINER AT BEDSIDE FOR OCCULT STOOL. PATIENT INSTRUCTED TO GIVE SAMPLE WHEN SHE HAS A BOWEL MOVEMENT.
[2024-11-12 06:17] LABS: CREATININE 0.4 mg/dL (0.5-1.0); MAGNESIUM 2.1 mg/dL (1.80-2.40); POTASSIUM 3.9 mmol/L (3.5-5.1)
[2024-11-12] MEDS: FOLic ACID 1 MG TABLET PO SCH (08:03)
[2024-11-12] MEDS: hydroXYCHLOroquine SULFate 200 MG TAB PO SCH (08:03)
[2024-11-12] MEDS: MULTIVITAMIN TABLET PO SCH (08:03)
[2024-11-12] MEDS: predniSONE 5 MG TABLET PO SCH (08:03)
[2024-11-12] MEDS: atorVAStatin 20 MG TABLET PO SCH (08:03)
[2024-11-12] MEDS: cefTRIAXone 1G VIAL IVPB SCH (08:06)
[2024-11-12] MEDS ORDERED: ENOXAPARIN SODIUM 30 MG/0.3 ML SQ SCH (09:00)
--- NOTE | 2024-11-12 09:38 | CONS ---
GASTROENTEROLOGY CONSULTATION NOTE Date of Consultation: Nov 12, 2024 Time of Consultation: 09:38 History of Present Illness: [ This is a 64-year-old male with past medical history of hyperlipidemia rheumatoid arthritis history of overactive bladder status post falls in July who presented to the ER for generalized malaise increased thirst and polyuria for several day. Patient has history of type [address] was ordered with no acute intracranial bleed; chest CT shows mild pulmonary bilateral infiltrates may be related to mild pulmonary vascular congestion with possible superimposed pneumonitis. WBC 14.2 and trending down to 10.4; HGB 12.6 and trending down to 9.9 today; Platelets 238 on admission and trending down to 198 today. PT at 11.8 INR normal at 1.13. HGB A1C 10.7] Review of Systems: CONSTITUTIONAL: No malaise or change in sensation of wellbeing. ENMT: No rhinorrhea, otorrhea, sinus pain, ear ache. CARDIOVASCULAR: No angina, palpitations, orthopnea or paroxysmal dyspnea. RESPIRATORY: No SOB. GASTROINTESTINAL: No abdominal pain, nausea, vomiting, diarrhea, hematemesis, melena or change in the patient's habitual bowel movements consistency/number. GENITOURINARY: No dysuria, hematuria or change in bladder continence. MUSCULOSKELETAL: No new muscle pain or decrease in muscular strength. No new joint swelling, redness or tenderness. SKIN: No new rash. PAST MEDICAL HISTORY: Hyperlipidemia, rheumatoid arthritis diagnosed in 07/2024, history of chronic pain secondary to rheumatoid arthritis, PAST SURGICAL HISTORY: in 1981 and 1984 PAST SOCIAL HISTORY: Currently denies active smoking or alcohol consumption FAMILY HISTORY: Reports family history of diabetes in the family Coded Allergies: No Known Drug Allergies (Unverified Allergy, Unknown, 11/11/24) Physical Exam: GEN: Awake, alert, oriented in person, time and place, and in no acute distress. HEENT: No sinus tenderness. Tympanic membranes were not examined. No rhinorrhea. Oral pharyngeal mucosa is pink, moist and within normal limits. Neck is supple with no cervical lymphadenopathy, thyromegaly or JVD. CHEST: Inspection, palpation and percussion of the chest were unremarkable. Lung auscultation revealed normal breath sounds bilaterally. CARDIAC: PMI is within normal limits. Heart sounds are regular. Normal S1, S2. No gallop or murmur. ABD: Soft, non-tender and not distended. No peritoneal signs on palpation. No organomegaly. Normal bowel sounds. EXT: No cyanosis or clubbing. No edema. SKIN: Intact. No rashes. JOINTS: No evidence of synovitis or acute arthritis. NEURO: Alert and oriented to name, place and person. Cranial nerve examination is unremarkable. No focal motor deficits. Normal speech. Gait is normal. Strength is normal. Vital Sign (Last 24 Hours) 11/12/24 11/12/24 11/12/24 04:00 04:46 06:57 Temp 97.7 Pulse 82 Resp 14 B/P (MAP) 147/65 (92) Pulse Ox 99 O2 Delivery Room Air* O2 Flow Rate 0 FiO2 21 Intake & Output (last 24hrs) 11/11/24 11/11/24 11/12/24 15:00 23:00 07:00 Intake Total 351.0 ml 1287.0 ml Balance 351.0 ml 1287.0 ml Laboratory: [ ] Laboratory: Test 11/12/24 07:28 11/12/24 07:20 11/12/24 05:55 11/12/24 01:02 Range/Units Whole Blood Glucose 98 70-110 MG/DL Stool Occult Blood NEGATIVE NEGATIVE White Blood Count 10.4 4.8-10.8 K/uL Red Blood Count 2.99 L 4.00-5.50 MIL/uL Hemoglobin 9.9 L 12.0-16.0 g/dL Hematocrit 29.5 L 36-48 % Mean Corpuscular Volume 98.7 79-99 fL Mean Corpuscular Hemoglobin 33.1 H 27.0-33.0 pg Mean Corpuscular Hemoglobin Concent 33.6 32.0-36.0 g/dL Red Cell Distribution Width 14.0 11.0-15.5 % Platelet Count 198 130-400 K/uL Mean Platelet Volume 11.0 H 7.5-10.5 fL Nucleated Red Blood Cells 0.0 0.0-0.19 % Sodium Level 139 136-145 mmol/L Potassium Level 3.9 3.5-5.1 mmol/L Chloride Level 108 101-111 mmol/L Carbon Dioxide Level 23 21-32 mmol/L Blood Urea Nitrogen 8 7-18 mg/dL Creatinine 0.4 L 0.5-1.0 mg/dL Glomerular Filtration Rate Calc 111 >90 mL/min Random Glucose 169 H 70-105 mg/dL Total Calcium 7.8 L 8.5-10.1 mg/dL Magnesium Level 2.10 1.80-2.40 mg/dL Immature Granulocyte % (Auto) 1.5 H 0-1 % Neutrophils (%) (Auto) 67.4 40.0-77.0 % Lymphocytes (%) (Auto) 25.1 21.0-51.0 % Monocytes (%) (Auto) 4.9 3.0-13.0 % Eosinophils (%) (Auto) 0.8 0.0-8.0 % Basophils (%) (Auto) 0.3 0.0-5.0 % Neutrophils # (Auto) 6.9 1.8-7.7 K/uL Lymphocytes # (Auto) 2.6 1.0-4.8 K/uL Monocytes # (Auto) 0.5 0.1-1.0 K/uL Eosinophils # (Auto) 0.08 0.00-0.70 K/uL Basophils # (Auto) 0.03 0.00-0.20 K/uL Absolute Immature Granulocyte (auto 0.15 0-1 K/uL Test 11/11/24 21:30 11/11/24 15:05 11/11/24 14:13 11/11/24 11:38 Range/Units Bedside Glucose Comment Notified Nurse Blood Gas Specimen Type Arterial Arterial Blood pH 7.431 7.350-7.450 Arterial Blood Partial Pressure CO2 28 L 32-45 mmHg Arterial Blood Partial Pressure O2 98.9 83.0-108.0 mmHg Arterial Blood HCO3 18.3 L 21.0-28.0 mmol/L Arterial Blood Oxygen Saturation 97.8 94.0-98.0 % Arterial Blood Base Excess -4.4 L -2.0-3.0 mmol/L Blood Gas Temperature 37.0 35.5-37.0 CELSIUS Blood Gas Vent Mode RA ROOM AIR FiO2 21.0 % Blood Gas Specimen Comment RR. Prothrombin Time 11.8 H 9.6-11.6 SEC Prothromb Time International Ratio 1.13 0.85-1.15 Activated Partial Thromboplast Time 21.6 L 26.3-35.5 SEC B-Type Natriuretic Peptide 17 0-100 pg/mL Erythrocyte Sedimentation Rate 37 H 0-30 MM/HR Hemoglobin A1c 10.7 H 4.0-6.0 % Estimated Average Glucose (eAG) 260 H 70-126 mg/dL Whole Blood Ketones Quantitative 2.7 H 0.0-0.6 mmol/L Lactic Acid Level 1.5 0.8-2.5 mmol/L Total Bilirubin 0.7 0.2-1.0 mg/dL Direct Bilirubin 0.2 0.0-0.3 mg/dL Aspartate Amino Transf (AST/SGOT) 25 10-37 U/L Alanine Aminotransferase (ALT/SGPT) 49 12-78 U/L Alkaline Phosphatase 119 50-136 U/L Lactate Dehydrogenase 417 H 81-234 U/L C-Reactive Protein, Quantitative 28.40 H 0.5-3.0 mg/L Total Protein 7.5 6.0-8.3 g/dL Albumin 4.0 3.5-5.0 g/dL Procalcitonin < 0.05 L 0.05-0.5 ng/mL Test 11/11/24 10:25 11/11/24 10:20 Range/Units Total Creatine Kinase 81 21-232 U/L Urine Color COLORLESS YELLOW Urine Appearance CLEAR CLEAR Urine pH 5.5 5.0-8.0 Urine Specific [place] 1.038 H 1.001-1.031 Urine Protein NEGATIVE NEGATIVE mg/dL Urine Glucose (UA) >=1000 H NEGATIVE mg/dL Urine Ketones 40 H NEGATIVE mg/dL Urine Occult Blood NEGATIVE NEGATIVE Urine Nitrate NEGATIVE NEGATIVE Urine Bilirubin NEGATIVE NEGATIVE mg/dL Urine Urobilinogen 0.2 0.2-1.0 mg/dL Urine Leukocyte Esterase 25 H NEGATIVE Andie/uL Urine RBC 11-25 H 0-1 /HPF Urine WBC 6-10 H 0-1 /HPF Urine Squamous Epithelial Cells RARE 0-2 /HPF Urine Bacteria RARE None Seen /HPF Urine Yeast RARE None Seen /HPF Urine Opiates Screen NEGATIVE NEGATIVE Urine Barbiturates Screen NEGATIVE NEGATIVE Urine Phencyclidine Screen NEGATIVE NEGATIVE Urine Amphetamines Screen NEGATIVE NEGATIVE Urine Benzodiazepines Screen NEGATIVE NEGATIVE Urine Cocaine Screen NEGATIVE NEGATIVE Urine Marijuana (THC) Screen NEGATIVE NEGATIVE Current Medications Medications (Trade) Dose Ordered Sig/Rajani Route PRN Reason Start Time Stop Time Status Last Admin Dose Admin Acetaminophen (TYLenol 325MG TAB) 650 mg Q6H PRN PO MILD PAIN (1-3) 11/11/24 12:00 12/11/24 11:59 11/12/24 08:05 650 MG Atorvastatin Calcium (LIPItor 20MG) 20 mg DAILY PO 11/12/24 09:00 12/12/24 08:59 11/12/24 08:03 20 MG Ceftriaxone Sodium (ROCEphine 1G INJ) 1 gm DAILY IVPB 11/12/24 09:00 11/22/24 08:59 11/12/24 08:06 1 GM Dextrose/Sodium Chloride 1,000 ml @ 0 mls/hr AD IV 11/11/24 12:30 12/11/24 12:29 Enoxaparin Sodium (Lovenox) 30 mg DAILY SQ 11/12/24 09:00 11/11/24 12:04 DC Folic Acid (FOLic ACID 1 MG TABLET) 1 mg DAILY PO 11/12/24 09:00 12/12/24 08:59 11/12/24 08:03 1 MG Hydralazine HCl (APRESOLine 20MG INJ) 10 mg Q6H PRN IV ADMINISTER FOR SBP > 170 11/11/24 12:00 12/11/24 11:59 Hydroxychloroquine Sulfate (PLAQuenil 200MG) 200 mg DAILY PO 11/12/24 09:00 11/26/24 08:59 11/12/24 08:03 200 MG Insulin Human Regular (humuLIN R 100 UNIT/ML 3ML) INSULIN SLIDING SCAL... ACHS SQ 11/11/24 16:30 11/11/24 12:06 DC Insulin Human Regular (humuLIN R 100 UNIT/ML 3ML) INSULIN SLIDING SCAL... ACHS SQ 11/11/24 16:30 11/11/24 12:22 DC Insulin Human Regular 100 unit/ Sodium Chloride 101 ml @ 0 mls/hr PROTOCOL IV 11/11/24 12:30 12/11/24 12:29 11/11/24 15:51 2 MLS/HR Ketorolac Tromethamine (toRADol) 15 mg Q6H PRN IV breakthrough pain 11/12/24 00:30 11/12/24 06:09 DC 11/12/24 00:20 15 MG Magnesium Sulfate 50 ml @ 0 mls/hr PROTOCOL IV 11/11/24 12:30 12/11/24 12:29 11/12/24 01:39 25 MLS/HR Multivitamins Therapeutic (Multivitamin Tablet) 1 tab DAILY PO 11/12/24 09:00 12/12/24 08:59 11/12/24 08:03 1 TAB Ondansetron HCl (zoFRAN 4MG INJ) 4 mg Q6H PRN IVP NAUSEA/VOMITING 11/11/24 12:00 12/11/24 11:59 Oxybutynin Chloride (ditROPAN XL) 10 mg HS PO 11/12/24 21:00 12/12/24 20:59 Pantoprazole Sodium (PROTonix 40MG INJ) 40 mg BID IVP 11/11/24 21:00 12/11/24 20:59 11/12/24 08:06 40 MG Potassium Chloride 20 meq/ Sodium Chloride 1,010 ml @ 0 mls/hr PROTOCOL IV 11/11/24 12:30 12/11/24 12:29 Potassium Chloride/Dextrose/ Sod Cl 1,000 ml @ 0 mls/hr AD IV 11/11/24 12:30 12/11/24 12:29 11/12/24 00:50 175 MLS/HR Potassium Chloride 100 ml @ 0 mls/hr PROTOCOL PRN IV DKA POTASSIUM REPLACEMENT 11/11/24 12:30 12/11/24 12:29 Potassium Chloride (K-Dur/Klor-Con 20meq) 20 meq AD PRN PO POTASSIUM PROTOCOL 11/11/24 20:00 12/11/24 19:59 11/12/24 04:16 20 MEQ Potassium Chloride (KCl 10% Elixir 20meq/15ml) 20 meq AD PRN PO POTASSIUM PROTOCOL 11/11/24 20:00 12/11/24 19:59 Prednisone (deltaSONE/ oraSONE 5MG) 5 mg DAILY PO 11/12/24 09:00 12/12/24 08:59 11/12/24 08:03 5 MG Sodium Chloride 1,000 ml @ 75 mls/hr [id number] IV 11/11/24 12:00 11/11/24 12:50 DC 11/11/24 12:40 75 MLS/HR Sodium Chloride 1,000 ml @ 200 mls/hr PROTOCOL IV 11/11/24 12:30 12/11/24 12:29 11/11/24 15:51 200 MLS/HR Diagnostics / Radiology: [COPY/PASTE HERE IF NO REPORTS PLEASE DELETE SECTION] Assessment: [Anemia R/o GI bleed ] Plan: 1. NPO ] [employer]WOOD [employer] Nov 12, 2024 09:38
[2024-11-12] MEDS: ondanSETRON 4MG INJ IVP PRN (12:14)
--- NOTE | 2024-11-12 14:25 | PN ---
[facility] PROGRESS NOTE Date of Service: Nov 12, 2024 Time of Service: 14:20 SUBJECTIVE: 11/12 No acute events overnight. Anion gap closed, will be transitioned to subcutaneous insulin. Urine growing gram negative rods, will continue with IV antibiotics. Pt denies hx of diabetes, A1C is 10.7 consistent with severe uncontrolled diabetes, patient will need close follow up with her PCP after discharge. REVIEW OF SYSTEMS 12 point ROS negative unless noted in HPI PHYSICAL EXAM GENERAL APPEARANCE: The patient is awake, alert, and oriented, in no acute cardiopulmonary distress. NEUROLOGICAL: Cranial nerves II-XII grossly intact. Neurological examination is nonfocal HEENT: Face is symmetric. Pupils are equal and reactive. Extraocular movements are intact. NECK: Supple. No JVD. No thyromegaly. No submental, submandibular, pre- /postauricular, occipital or supraclavicular lymphadenopathy. CHEST: Normal chest expansion. No Telemetry. LUNGS: Absence of any rales, rhonchi or any wheezing. CARDIOVASCULAR: Regular. S1 and S2 normal. No appreciable rubs, murmurs or gallops. ABDOMEN: Soft, nontender, and nondistended. There is no rebound, voluntary guarding, or rigidity. : Deferred. No Neil. EXTREMITIES: She has scattered bruising involving the bilateral upper extremities Vital Signs (last 8hr) Date Time Temp Pulse Resp B/P (MAP) Pulse Ox O2 Delivery O2 Flow Rate FiO2 11/12/24 08:00 96 Room Air* 0 21 11/12/24 06:57 82 14 147/65 (92) 99 11/12/24 06:27 73 19 97 LABS: Laboratory: Test 11/12/24 11:59 11/12/24 07:20 11/12/24 05:55 11/12/24 01:02 Range/Units Whole Blood Glucose 157 H 70-110 MG/DL Stool Occult Blood NEGATIVE NEGATIVE White Blood Count 10.4 4.8-10.8 K/uL Red Blood Count 2.99 L 4.00-5.50 MIL/uL Hemoglobin 9.9 L 12.0-16.0 g/dL Hematocrit 29.5 L 36-48 % Mean Corpuscular Volume 98.7 79-99 fL Mean Corpuscular Hemoglobin 33.1 H 27.0-33.0 pg Mean Corpuscular Hemoglobin Concent 33.6 32.0-36.0 g/dL Red Cell Distribution Width 14.0 11.0-15.5 % Platelet Count 198 130-400 K/uL Mean Platelet Volume 11.0 H 7.5-10.5 fL Nucleated Red Blood Cells 0.0 0.0-0.19 % Sodium Level 139 136-145 mmol/L Potassium Level 3.9 3.5-5.1 mmol/L Chloride Level 108 101-111 mmol/L Carbon Dioxide Level 23 21-32 mmol/L Blood Urea Nitrogen 8 7-18 mg/dL Creatinine 0.4 L 0.5-1.0 mg/dL Glomerular Filtration Rate Calc 111 >90 mL/min Random Glucose 169 H 70-105 mg/dL Total Calcium 7.8 L 8.5-10.1 mg/dL Magnesium Level 2.10 1.80-2.40 mg/dL Immature Granulocyte % (Auto) 1.5 H 0-1 % Neutrophils (%) (Auto) 67.4 40.0-77.0 % Lymphocytes (%) (Auto) 25.1 21.0-51.0 % Monocytes (%) (Auto) 4.9 3.0-13.0 % Eosinophils (%) (Auto) 0.8 0.0-8.0 % Basophils (%) (Auto) 0.3 0.0-5.0 % Neutrophils # (Auto) 6.9 1.8-7.7 K/uL Lymphocytes # (Auto) 2.6 1.0-4.8 K/uL Monocytes # (Auto) 0.5 0.1-1.0 K/uL Eosinophils # (Auto) 0.08 0.00-0.70 K/uL Basophils # (Auto) 0.03 0.00-0.20 K/uL Absolute Immature Granulocyte (auto 0.15 0-1 K/uL Test 11/11/24 21:30 11/11/24 15:05 11/11/24 14:13 11/11/24 11:38 Range/Units Bedside Glucose Comment Notified Nurse Blood Gas Specimen Type Arterial Arterial Blood pH 7.431 7.350-7.450 Arterial Blood Partial Pressure CO2 28 L 32-45 mmHg Arterial Blood Partial Pressure O2 98.9 83.0-108.0 mmHg Arterial Blood HCO3 18.3 L 21.0-28.0 mmol/L Arterial Blood Oxygen Saturation 97.8 94.0-98.0 % Arterial Blood Base Excess -4.4 L -2.0-3.0 mmol/L Blood Gas Temperature 37.0 35.5-37.0 CELSIUS Blood Gas Vent Mode RA ROOM AIR FiO2 21.0 % Blood Gas Specimen Comment RR. Prothrombin Time 11.8 H 9.6-11.6 SEC Prothromb Time International Ratio 1.13 0.85-1.15 Activated Partial Thromboplast Time 21.6 L 26.3-35.5 SEC B-Type Natriuretic Peptide 17 0-100 pg/mL Erythrocyte Sedimentation Rate 37 H 0-30 MM/HR Hemoglobin A1c 10.7 H 4.0-6.0 % Estimated Average Glucose (eAG) 260 H 70-126 mg/dL Whole Blood Ketones Quantitative 2.7 H 0.0-0.6 mmol/L Lactic Acid Level 1.5 0.8-2.5 mmol/L Total Bilirubin 0.7 0.2-1.0 mg/dL Direct Bilirubin 0.2 0.0-0.3 mg/dL Aspartate Amino Transf (AST/SGOT) 25 10-37 U/L Alanine Aminotransferase (ALT/SGPT) 49 12-78 U/L Alkaline Phosphatase 119 50-136 U/L Lactate Dehydrogenase 417 H 81-234 U/L C-Reactive Protein, Quantitative 28.40 H 0.5-3.0 mg/L Total Protein 7.5 6.0-8.3 g/dL Albumin 4.0 3.5-5.0 g/dL Procalcitonin < 0.05 L 0.05-0.5 ng/mL Test 11/11/24 10:25 11/11/24 10:20 Range/Units Total Creatine Kinase 81 21-232 U/L Urine Color COLORLESS YELLOW Urine Appearance CLEAR CLEAR Urine pH 5.5 5.0-8.0 Urine Specific [place] 1.038 H 1.001-1.031 Urine Protein NEGATIVE NEGATIVE mg/dL Urine Glucose (UA) >=1000 H NEGATIVE mg/dL Urine Ketones 40 H NEGATIVE mg/dL Urine Occult Blood NEGATIVE NEGATIVE Urine Nitrate NEGATIVE NEGATIVE Urine Bilirubin NEGATIVE NEGATIVE mg/dL Urine Urobilinogen 0.2 0.2-1.0 mg/dL Urine Leukocyte Esterase 25 H NEGATIVE Andie/uL Urine RBC 11-25 H 0-1 /HPF Urine WBC 6-10 H 0-1 /HPF Urine Squamous Epithelial Cells RARE 0-2 /HPF Urine Bacteria RARE None Seen /HPF Urine Yeast RARE None Seen /HPF Urine Opiates Screen NEGATIVE NEGATIVE Urine Barbiturates Screen NEGATIVE NEGATIVE Urine Phencyclidine Screen NEGATIVE NEGATIVE Urine Amphetamines Screen NEGATIVE NEGATIVE Urine Benzodiazepines Screen NEGATIVE NEGATIVE Urine Cocaine Screen NEGATIVE NEGATIVE Urine Marijuana (THC) Screen NEGATIVE NEGATIVE Current Medications Medications (Trade) Dose Ordered Sig/Rajani Route PRN Reason Start Time Stop Time Status Last Admin Dose Admin Acetaminophen (TYLenol 325MG TAB) 650 mg Q6H PRN PO MILD PAIN (1-3) 11/11/24 12:00 12/11/24 11:59 11/12/24 08:05 650 MG Atorvastatin Calcium (LIPItor 20MG) 20 mg DAILY PO 11/12/24 09:00 12/12/24 08:59 11/12/24 08:03 20 MG Ceftriaxone Sodium (ROCEphine 1G INJ) 1 gm DAILY IVPB 11/12/24 09:00 11/22/24 08:59 11/12/24 08:06 1 GM Dextrose/Sodium Chloride 1,000 ml @ 0 mls/hr AD IV 11/11/24 12:30 12/11/24 12:29 Enoxaparin Sodium (Lovenox) 30 mg DAILY SQ 11/12/24 09:00 11/11/24 12:04 DC Folic Acid (FOLic ACID 1 MG TABLET) 1 mg DAILY PO 11/12/24 09:00 12/12/24 08:59 11/12/24 08:03 1 MG Hydralazine HCl (APRESOLine 20MG INJ) 10 mg Q6H PRN IV ADMINISTER FOR SBP > 170 11/11/24 12:00 12/11/24 11:59 Hydroxychloroquine Sulfate (PLAQuenil 200MG) 200 mg DAILY PO 11/12/24 09:00 11/26/24 08:59 11/12/24 08:03 200 MG Insulin Human Regular (humuLIN R 100 UNIT/ML 3ML) INSULIN SLIDING SCAL... ACHS SQ 11/11/24 16:30 11/11/24 12:06 DC Insulin Human Regular (humuLIN R 100 UNIT/ML 3ML) INSULIN SLIDING SCAL... ACHS SQ 11/11/24 16:30 11/11/24 12:22 DC Insulin Human Regular 100 unit/ Sodium Chloride 101 ml @ 0 mls/hr PROTOCOL IV 11/11/24 12:30 12/11/24 12:29 11/11/24 15:51 2 MLS/HR Ketorolac Tromethamine (toRADol) 15 mg Q6H PRN IV breakthrough pain 11/12/24 00:30 11/12/24 06:09 DC 11/12/24 00:20 15 MG Magnesium Sulfate 50 ml @ 0 mls/hr PROTOCOL IV 11/11/24 12:30 12/11/24 12:29 11/12/24 01:39 25 MLS/HR Multivitamins Therapeutic (Multivitamin Tablet) 1 tab DAILY PO 11/12/24 09:00 12/12/24 08:59 11/12/24 08:03 1 TAB Ondansetron HCl (zoFRAN 4MG INJ) 4 mg Q6H PRN IVP NAUSEA/VOMITING 11/11/24 12:00 12/11/24 11:59 11/12/24 12:14 4 MG Oxybutynin Chloride (ditROPAN XL) 10 mg HS PO 11/12/24 21:00 12/12/24 20:59 Pantoprazole Sodium (PROTonix 40MG INJ) 40 mg BID IVP 11/11/24 21:00 12/11/24 20:59 11/12/24 08:06 40 MG Potassium Chloride 20 meq/ Sodium Chloride 1,010 ml @ 0 mls/hr PROTOCOL IV 11/11/24 12:30 12/11/24 12:29 Potassium Chloride/Dextrose/ Sod Cl 1,000 ml @ 0 mls/hr AD IV 11/11/24 12:30 12/11/24 12:29 11/12/24 00:50 175 MLS/HR Potassium Chloride 100 ml @ 0 mls/hr PROTOCOL PRN IV DKA POTASSIUM REPLACEMENT 11/11/24 12:30 12/11/24 12:29 Potassium Chloride (K-Dur/Klor-Con 20meq) 20 meq AD PRN PO POTASSIUM PROTOCOL 11/11/24 20:00 12/11/24 19:59 11/12/24 04:16 20 MEQ Potassium Chloride (KCl 10% Elixir 20meq/15ml) 20 meq AD PRN PO POTASSIUM PROTOCOL 11/11/24 20:00 7/25/25 19:59 Prednisone (deltaSONE/ oraSONE 5MG) 5 mg DAILY PO 11/12/24 09:00 12/12/24 08:59 11/12/24 08:03 5 MG Sodium Chloride 1,000 ml @ 75 mls/hr [id number] IV 11/11/24 12:00 11/11/24 12:50 DC 11/11/24 12:40 75 MLS/HR Sodium Chloride 1,000 ml @ 200 mls/hr PROTOCOL IV 11/11/24 12:30 12/11/24 12:29 11/11/24 15:51 200 MLS/HR DIAGNOSTICS / RADIOLOGY: [ ] ASSESSMENT: Severe hyperglycemia with diabetic ketoacidosis, POA History of uncontrolled type 2 diabetes mellitus, POA 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, POA Leukocytosis, POA Urinary tract infection, mild, POA History of rheumatoid arthritis maintained on outpatient methotrexate, POA Rule out hematochezia, POA History of hemorrhoids, POA Hyperlipidemia, POA Elevated blood pressure, POA History of recurrent falls, POA History of NSAID use as outpatient for pain control, POA PLAN: 64-year-old female with history of rheumatoid arthritis and use of prednisone as outpatient presenting with severe hyperglycemia with elevated blood ketones, ketonuria, concerning for diabetic ketoacidosis Patient will be admitted to ICU We will initiate patient on insulin drip and IV fluid resuscitation per DKA protocol BMP will be checked q.4 hours, potassium and magnesium will be aggressively repleted Consultation with critical Care will be requested Prednisone will be held today until sugars improve Patient's case was discussed with Dr. Florian with endocrinology, appreciate recommendations We will keep patient on IV Rocephin for management of urinary tract infection Patient reports having history of recurrent falls since 07/2024 with gait unsteadiness, last fall was three weeks ago, denies any head trauma, denies any neck pain or cervical radiculopathy, we will follow up with CT head without contrast to rule out any intracranial process, we will request consultation with Physical therapy tomorrow We will keep patient on IV Protonix 40 mg b.i.d., patient reports that she might have been having blood in the stool, we will check stool for occult blood, she has a history of hemorrhoids, she also takes ibuprofen intermittently for pain control for about a year, denies previous history of peptic ulcer disease, may consider GI evaluation this admission, discussed with patient avoid any NSAID use especially when she is taking prednisone as well H&H will be monitored closely We will keep patient on DVT prophylaxis with SCDs, once GI bleeding is ruled out, we can consider starting pharmacologic DVT prophylaxis All labs will be repeated in the morning Patient denies previous history of hypertension, blood pressure is noted to be elevated in the ER, we will keep an eye on blood pressure trend during hospital course, if continues to be elevated, we will start antihypertensive therapy Disposition: pendign improvement in clinical status ANEUDY ISABEL MD Nov 12, 2024 14:25
[2024-11-12] MEDS: INSULIN humuLIN R 100 UNIT/ML 3ML SQ SCH (16:30)
--- NOTE | 2024-11-12 16:43 | PN ---
[facility] PROGRESS NOTE Date Patient Seen: Nov 12, 2024 Time of Visit: 16:28 Supervising Physician: Dr. Garcia Primary Care Physician: DR. DEREK FERNANDEZ Outpatient Specialists: [ ] Inpatient Consults: [ ] PROBLEM LIST: 1. DIABETIC KETOACIDOSIS, POA 2. ACUTE COMPLICATED CYSTITIS, POA 3. UTI, P.O.A 4. 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 The patient vital signs showed elevated blood pressure readings, otherwise unremarkable. Laboratory data today showed a unremarkable hematology panel and chemistry panel showed a closed gap of 8. The patient currently remains on insulin drip. She has started oral feeding. No other complaint. REVIEW OF SYSTEMS: 12 point ROS reviewed with patient. Pertinent positives mentioned above. Otherwise negative. PHYSICAL EXAM: GENERAL: Alert, weak, awake oriented x 3 HEENT: EOMI, Sclera non icteric, moist mucosa NECK: Supple, no JVD, trachea midline LUNGS: Clear breath sounds bilaterally. No wheezes HEART: Regular rate and rhythm. Normal S1 and S2, without murmurs ABD: Abdomen soft, nontender. Bowel sounds present EXT: No clubbing cyanosis or edema NEURO: Alert and oriented to person, follows commands Vital Signs (last 8hr) Date Time Temp Pulse Resp B/P (MAP) Pulse Ox O2 Delivery O2 Flow Rate FiO2 11/12/24 14:00 98.4 79 16 147/82 98 Room Air 0.0 11/12/24 14:00 79 16 160/83 (108) 98 11/12/24 13:00 69 18 96 11/12/24 12:00 75 16 148/68 (94) 99 11/12/24 11:00 81 29 134/72 (92) 98 11/12/24 10:00 82 14 133/62 (85) 98 11/12/24 09:00 75 20 132/62 (85) 98 LABS: Hematology Labs: Test 11/12/24 05:55 11/12/24 01:02 11/11/24 11:38 Range/Units White Blood Count 10.4 4.8-10.8 K/uL Red Blood Count 2.99 L 4.00-5.50 MIL/uL Hemoglobin 9.9 L 12.0-16.0 g/dL Hematocrit 29.5 L 36-48 % Mean Corpuscular Volume 98.7 79-99 fL Mean Corpuscular Hemoglobin 33.1 H 27.0-33.0 pg Mean Corpuscular Hemoglobin Concent 33.6 32.0-36.0 g/dL Red Cell Distribution Width 14.0 11.0-15.5 % Platelet Count 198 130-400 K/uL Mean Platelet Volume 11.0 H 7.5-10.5 fL Nucleated Red Blood Cells 0.0 0.0-0.19 % Immature Granulocyte % (Auto) 1.5 H 0-1 % Neutrophils (%) (Auto) 67.4 40.0-77.0 % Lymphocytes (%) (Auto) 25.1 21.0-51.0 % Monocytes (%) (Auto) 4.9 3.0-13.0 % Eosinophils (%) (Auto) 0.8 0.0-8.0 % Basophils (%) (Auto) 0.3 0.0-5.0 % Neutrophils # (Auto) 6.9 1.8-7.7 K/uL Lymphocytes # (Auto) 2.6 1.0-4.8 K/uL Monocytes # (Auto) 0.5 0.1-1.0 K/uL Eosinophils # (Auto) 0.08 0.00-0.70 K/uL Basophils # (Auto) 0.03 0.00-0.20 K/uL Absolute Immature Granulocyte (auto 0.15 0-1 K/uL Erythrocyte Sedimentation Rate 37 H 0-30 MM/HR Chemistry Labs: Test 11/12/24 14:43 11/12/24 05:55 11/11/24 21:30 11/11/24 14:13 Range/Units Whole Blood Glucose 210 H 70-110 MG/DL Sodium Level 139 136-145 mmol/L Potassium Level 3.9 3.5-5.1 mmol/L Chloride Level 108 101-111 mmol/L Carbon Dioxide Level 23 21-32 mmol/L Blood Urea Nitrogen 8 7-18 mg/dL Creatinine 0.4 L 0.5-1.0 mg/dL Glomerular Filtration Rate Calc 111 >90 mL/min Random Glucose 169 H 70-105 mg/dL Total Calcium 7.8 L 8.5-10.1 mg/dL Magnesium Level 2.10 1.80-2.40 mg/dL Bedside Glucose Comment Notified Nurse B-Type Natriuretic Peptide 17 0-100 pg/mL Test 11/11/24 11:38 11/11/24 10:25 Range/Units Hemoglobin A1c 10.7 H 4.0-6.0 % Estimated Average Glucose (eAG) 260 H 70-126 mg/dL Whole Blood Ketones Quantitative 2.7 H 0.0-0.6 mmol/L Lactic Acid Level 1.5 0.8-2.5 mmol/L Total Bilirubin 0.7 0.2-1.0 mg/dL Direct Bilirubin 0.2 0.0-0.3 mg/dL Aspartate Amino Transf (AST/SGOT) 25 10-37 U/L Alanine Aminotransferase (ALT/SGPT) 49 12-78 U/L Alkaline Phosphatase 119 50-136 U/L Lactate Dehydrogenase 417 H 81-234 U/L C-Reactive Protein, Quantitative 28.40 H 0.5-3.0 mg/L Total Protein 7.5 6.0-8.3 g/dL Albumin 4.0 3.5-5.0 g/dL Procalcitonin < 0.05 L 0.05-0.5 ng/mL Total Creatine Kinase 81 21-232 U/L Coagulation Labs: Test 11/11/24 14:13 Range/Units Prothrombin Time 11.8 H 9.6-11.6 SEC Prothromb Time International Ratio 1.13 0.85-1.15 Activated Partial Thromboplast Time 21.6 L 26.3-35.5 SEC DIAGNOSTICS / RADIOLOGY RESULTS: [ ] PLAN 11/12/2024: For now, going to continue current management for the patient. Since the gap has closed, we are going to discontinue insulin drip. The patient has started oral feedings. I am going to start the patient on a insulin sliding scale also start the patient on Lantus 10 subQ q.12. We will continue monitorin g the blood glucose trend and we will treat accordingly. I believe the patient is stable enough and can be discharged out of the ICU. I discussed the findings and plan for further management with the patient. We will monitor the patient's progress and response to management. We will continue to provide general supportive care, GI and DVT prophylaxis. Further orders per attending MD and hospital course. NEURO: Minimize central acting medications as possible. Fall Precautions. Well lighted room through the day and minimize interruptions through the night to prevent acute delirium. PULMONARY: Supplemental 02 as needed Titrate Fio2 to keep Spo2 > or = 90% DuoNebs and CPT as needed IS hourly while awake for pulmonary hygiene Out of bed to chair as tolerated VAP Bundle CARDIOVASCULAR: Follow hemodynamics. Titrate vasopressor to keep MAP >65 or systolic blood pressure >95mmHg DIPS: [ ] LINES: PIV's GI & NUTRITION: Continue nutritional support Aspirations precautions Prokinetic agents and laxatives as needed KIDNEYS & ELECTROLYTES: Strict monitoring of intake and output Daily weights Avoid nephrotoxic agents Monitor electrolytes and replace as needed Goal urine output of 30mL/hr or 0.5mL/kg/hr Urine output: [ ] Fluid Balance: [ ] ENDOCRINE: Maintain blood glucose between 100-180 at all times. Insulin sliding scale for blood glucose management Concerning insulin drip until gap is closed INFECTIOUS DISEASE: Trend temperature. Nugent-culture if febrile. Micro: [ ] Antibiotics: Ceftriaxone 2 g IV daily HEMATOLOGY & COAGULATION: Monitor H&H. Keep Hgb > 7 Transfuse 1 unit of PRBC for Hgb < 7 Transfuse 1 pack of platelets of platelets < 20, 000 Watch for any signs and symptoms of bleeding SKIN: Pressure ulcer prevention per facility protocol Rehab: PT/OT Prophylaxis: GI: Famotidine DVT: SCDs Code Status: Full Resuscitation Disposition: Admitted in ICU Other: Total patient care time exceeds 35 minutes excluding all procedures. Case was discussed and seen with my supervising physician, Dr.Jairo Garcia. The above plan was formulated and agreed upon. MARISOL GILBERT NP Nov 12, 2024 16:42
[2024-11-12] MEDS: oxyBUTYnin 5 MG TAB.SR.24H PO SCH (20:40)
[2024-11-12] MEDS: INSULIN GLARgine 100 UNITS/ML 10 ML VIAL SQ SCH (20:43)
[2024-11-13 03:26] VITALS: BP 132/75; PULSE 89; RESP 16; TEMP 98.4
[2024-11-13 07:13] VITALS: BP 152/68; PULSE 89; RESP 18; TEMP 98.7
[2024-11-13 08:15] VITALS: O2SAT 97
[2024-11-13 11:27] VITALS: BP 119/80; PULSE 94; RESP 16; TEMP 98.5
[2024-11-13] MEDS ORDERED: CEPH500B PO (11:51)
[2024-11-13] MEDS ORDERED: METF-1151 PO (11:51)
[2024-11-13] MEDS ORDERED: EMPA10TA PO (11:51)
--- NOTE | 2024-11-13 13:22 | PN ---
[facility] PROGRESS NOTE Date Patient Seen: Nov 13, 2024 Time of Visit: 13:22 Supervising Physician: Dr. Garcia Primary Care Physician: DR. DEREK FERNANDEZ Outpatient Specialists: [ ] Inpatient Consults: [ ] PROBLEM LIST: 1. DIABETIC KETOACIDOSIS, POA 2. ACUTE COMPLICATED CYSTITIS, POA 3. UTI, P.O.A 4. 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 The patient vital signs showed elevated blood pressure readings, otherwise unremarkable. Laboratory data today showed a unremarkable hematology panel and chemistry panel showed a closed gap of 8. The patient currently remains on insulin drip. She has started oral feeding. No other complaint. 11/13/2024: At the time of my evaluation, the patient was sitting up to the bedside chair. The staff nurse reports no acute events overnight. Today, vital signs were unremarkable. Laboratory data today were also unremarkable. Blood sugar trend significantly improved. Microbiology data showed a urine culture with E coli pansensitive. Currently, the patient is on antibiotic therapy with Rocephin. No other complaint. REVIEW OF SYSTEMS: 12 point ROS reviewed with patient. Pertinent positives mentioned above. Otherwise negative. PHYSICAL EXAM: GENERAL: Alert, weak, awake oriented x 3 HEENT: EOMI, Sclera non icteric, moist mucosa NECK: Supple, no JVD, trachea midline LUNGS: Clear breath sounds bilaterally. No wheezes HEART: Regular rate and rhythm. Normal S1 and S2, without murmurs ABD: Abdomen soft, nontender. Bowel sounds present EXT: No clubbing cyanosis or edema NEURO: Alert and oriented to person, follows commands Vital Signs (last 8hr) Date Time Temp Pulse Resp B/P (MAP) Pulse Ox O2 Delivery O2 Flow Rate FiO2 11/13/24 11:27 98.4 94 16 119/80 98 Room Air 11/13/24 08:15 97 Room Air* 0 21 11/13/24 07:13 98.8 89 18 152/68 98 Room Air LABS: Hematology Labs: Test 11/12/24 05:55 11/12/24 01:02 Range/Units White Blood Count 10.4 4.8-10.8 K/uL Red Blood Count 2.99 L 4.00-5.50 MIL/uL Hemoglobin 9.9 L 12.0-16.0 g/dL Hematocrit 29.5 L 36-48 % Mean Corpuscular Volume 98.7 79-99 fL Mean Corpuscular Hemoglobin 33.1 H 27.0-33.0 pg Mean Corpuscular Hemoglobin Concent 33.6 32.0-36.0 g/dL Red Cell Distribution Width 14.0 11.0-15.5 % Platelet Count 198 130-400 K/uL Mean Platelet Volume 11.0 H 7.5-10.5 fL Nucleated Red Blood Cells 0.0 0.0-0.19 % Immature Granulocyte % (Auto) 1.5 H 0-1 % Neutrophils (%) (Auto) 67.4 40.0-77.0 % Lymphocytes (%) (Auto) 25.1 21.0-51.0 % Monocytes (%) (Auto) 4.9 3.0-13.0 % Eosinophils (%) (Auto) 0.8 0.0-8.0 % Basophils (%) (Auto) 0.3 0.0-5.0 % Neutrophils # (Auto) 6.9 1.8-7.7 K/uL Lymphocytes # (Auto) 2.6 1.0-4.8 K/uL Monocytes # (Auto) 0.5 0.1-1.0 K/uL Eosinophils # (Auto) 0.08 0.00-0.70 K/uL Basophils # (Auto) 0.03 0.00-0.20 K/uL Absolute Immature Granulocyte (auto 0.15 0-1 K/uL Chemistry Labs: Test 11/13/24 12:28 11/12/24 05:55 11/11/24 21:30 11/11/24 14:13 Range/Units Whole Blood Glucose 190 H 70-110 MG/DL Sodium Level 139 136-145 mmol/L Potassium Level 3.9 3.5-5.1 mmol/L Chloride Level 108 101-111 mmol/L Carbon Dioxide Level 23 21-32 mmol/L Blood Urea Nitrogen 8 7-18 mg/dL Creatinine 0.4 L 0.5-1.0 mg/dL Glomerular Filtration Rate Calc 111 >90 mL/min Random Glucose 169 H 70-105 mg/dL Total Calcium 7.8 L 8.5-10.1 mg/dL Magnesium Level 2.10 1.80-2.40 mg/dL Bedside Glucose Comment Notified Nurse B-Type Natriuretic Peptide 17 0-100 pg/mL Coagulation Labs: Test 11/11/24 14:13 Range/Units Prothrombin Time 11.8 H 9.6-11.6 SEC Prothromb Time International Ratio 1.13 0.85-1.15 Activated Partial Thromboplast Time 21.6 L 26.3-35.5 SEC DIAGNOSTICS / RADIOLOGY RESULTS: [ ] PLAN 11/13/2024: For now, going to continue current management for the patient. We will continue antibiotic therapy as ordered. We will continue diabetic man agement. Further management and disposition per the primary team. We will proceed to sign off the case. Appreciate the opportunity provided to participate in patient's care. We will remain available for future needs. NEURO: Minimize central acting medications as possible. Maintain fall precautions, adequate lighting during the day PULMONARY: Supplemental 02 as needed. Maintain aspiration precautions at all times CARDIOVASCULAR: Follow hemodynamics. Vital signs per facility protocol GI & NUTRITION: Continue with nutritional support. Continue stool softeners and laxatives as needed. KIDNEYS & ELECTROLYTES: Strict monitoring of intake, output and overall fluid balance. Avoid nephrotoxic medications to the extent possible. Medications to be dosed according to renal function. Monitor electrolytes and replace as needed ENDOCRINE: Maintain blood glucose between 100-180 at all times. Hypoglycemia protocol in place INFECTIOUS DISEASE: Trend temperature, WBC and procalcitonin level Follow cultures, deescalate antibiotics as soon as possible. Panculture if new onset fever ONCOLOGY/HEMATOLOGY/COAGULATION: Monitor for s/s of bleeding Monitor hemoglobin, coagulation studies as needed SKIN: Pressure ulcer prevention per facility protocol Specialty mattress ORTHO/REHAB: Continue PT/OT Prophylaxis: Continue GI and DVT prophylaxis Code Status: Full Resuscitation Disposition: TBD Other: Patient was seen and case discussed with johann WORRELL. Plan of care was discussed and agreed upon. . MARISOL GILBERT NP Nov 13, 2024 13:22
--- NOTE | 2024-11-13 13:30 | NUR ---
[facility] ICU Skin Assessment: Patient assessed by wound healing team. Patient with no wounds or skin breakdown noted. Assessment and recommendations provided to primary nurse. Education provided.
--- NOTE | 2024-11-13 13:32 | DS ---
Discharge Summary Hospital Course Summary: 64-year-old male with underlying history of hyperlipidemia, rheumatoid arthritis diagnosed in 07/2024, history of overactive bladder who presented to the ER for further evaluation of generalized malaise, increased thirst, polyuria ongoing for the past several days. Patient denies previous history of type 2 diabetes mellitus. States that she is followed by Rheumatology as outpatient and was diagnosed with rheumatoid arthritis in 07/2024. She is currently maintained on outpatient regimen with methotrexate, prednisone, and hydroxychloroquine. She has been started on prednisone about a month ago. She is not sure of the dose of prednisone that she takes. Over the last several days, she has been having increased thirst and frequent urination. She also reports having history of unsteady gait ongoing since 07/2024. She denies any neck pain. She has had recurrent fall with last fall being about three weeks ago. Denies trauma to the head. With regards to underlying rheumatoid arthritis, patient does have polyarthritis especially involving the knee joint. She has a history of moderate pain requiring pain regimen with Tylenol and ibuprofen as outpatient. She denies any history of peptic ulcer disease. Today she noticed that while she was urinating, she may have had blood in the stool. She does have history of hemorrhoids as well. On presentation to hospital, patient was noted to be afebrile with T-max of 98.1 F, heart rate of 84, blood pressure of 167/89. [place] [address], hemoglobin 12.6, platelet count of 384790. BMP remarkable for sodium of 137, potassium 4.2, BUN of 15, creatinine of 0.8, blood glucose of 570, blood ketones of 2.7, lactic acid of 1. 5. Patient will be admitted for further treatment and management of severe hyperglycemia in the setting of diabetic ketoacidosis likely precipitated by steroid use and underlying history of untreated type 2 diabetes mellitus. Patient will be admitted to ICU and will be placed on insulin drip. Consultation with endocrinology and critical Care will be requested. We will monitor closely for any signs of GI bleeding as well. By hospital day 2 her anion gap was closed. She was noted to have a young sensitive E. Coli UTI. She was not aware of a new diabetes diagnosis. It may coincide with a new diagnosis of rheumatoid arthritis when she started taking glucocorticoids approximately 3-4 months ago. She may benefit from a transition off glucocorticoids and continued DMARD therapy under the supervision of her administrative medical director. Will defer to their specialized care and continue current the rapy. A1C is 10.7 suggesting she may benefit from insulin therapy however she will need training to ensure she does not have hypoglycemic events. She will be temporized with metformin and Jardiance and will follow up with her PCP next week for adjustments in her medication, lifestyle modification counseling. 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 Mild bilateral pulmonary infiltrates are seen may be related to mild pulmonary vascular congestion with possible superimposed pneumonitis. The heart is borderline enlarged. Degenerative changes are seen. No evidence of aortic calcification is seen. IMPRESSION: 1. Mild bilateral pulmonary infiltrates are seen may be related to mild pulmonary vascular congestion with possible superimposed pneumonitis. CT HEAD/BRAIN W/O CONTRAST HISTORY: Recurrent falls COMPARISON: None TECHNIQUE: Multiple sequential axial images of the head were obtained from the base of the skull through vertex. Patient was not given contrast through intravenous route. FINDINGS: The ventricles and extraventricular CSF spaces are nondilated for patient's age. There is no midline shift, mass effect or herniation. No acute intracranial bleed is seen. Left maxillary sinus changes are seen with mucoperiosteal thickening and air-fluid level. Bilateral basal ganglia calcifications are seen. IMPRESSION: 1. No acute intracranial bleed is seen. Assessment/Plan: Severe hyperglycemia with diabetic ketoacidosis, POA Newly diagnosed Uncontrolled type 2 diabetes mellitus, last A1C 10.7, POA 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, POA Leukocytosis, POA Urinary tract infection, E. Coli, POA History of rheumatoid arthritis maintained on outpatient methotrexate, POA Rule out hematochezia, POA History of hemorrhoids, POA Hyperlipidemia, POA Elevated blood pressure, POA History of recurrent falls, POA History of NSAID use as outpatient for pain control, POA Discharge Instructions: Follow up with PCP in 3-7 days. Patient with A1C of 10.7 consistent with diabetes. This may coincide with her starting medication for rheumatoid arthritis approximately 3-4 months ago. She may benefit from discontinuing further prednisone use and continuing methotrexate, will defer to administrative medical director. Patient discharged with metformin and jardiance, will likely need adjustment in diabetes medications for better glycemic control. Please check and adjust accordingly. Provide lifestyle modification counseling Home Medications: Active Scripts Cephalexin Monohydrate (Keflex) 500 Mg Cap, 1 CAP PO BID for 7 Days, #14 CAP 0 Refills Prov:ANEUDY ISABEL MD 11/13/24 Empagliflozin (Jardiance) 10 Mg Tablet, 1 TAB PO DAILY for 30 Days, #30 TAB 0 Refills Prov:ANEUDY ISABEL MD 11/13/24 Metformin HCl (Metformin HCl ER) 1,000 Mg [id number], 1 TAB PO BID for diabetes for 30 Days, #60 TAB 0 Refills Prov:ANEUDY ISABEL MD 11/13/24 Reported Medications Oxybutynin Chloride (Oxybutynin Chloride ER) 10 Mg Tab.er.24, 10 MG PO HS 11/11/24 Folic Acid (Folic Acid) 0.4 Mg Tablet, 1 MG PO DAILY, TAB 11/11/24 Hydroxychloroquine Sulfate (Hydroxychloroquine Sulfate) 200 Mg Tablet, 200 MG PO DAILY for 30 Days, TAB 11/11/24 Methotrexate Sodium (Methotrexate) 2.5 Mg Tablet, 2.5 MG PO QWEEK, TAB 11/11/24 Prednisone (Prednisone) 5 Mg Tablet, 5 MG PO DAILY, TAB 11/11/24 Atorvastatin Calcium (Atorvastatin Calcium) 20 Mg Tablet, 20 MG PO DAILY, TAB 11/11/24 New Medications: Cephalexin Monohydrate (Keflex) 500 Mg Cap 1 CAP PO BID for 7 Days, #14 CAP 0 Refills Empagliflozin (Jardiance) 10 Mg Tablet 1 TAB PO DAILY for 30 Days, #30 TAB 0 Refills Metformin HCl (Metformin HCl ER) 1,000 Mg [id number] 1 TAB PO BID for diabetes for 30 Days, #60 TAB 0 Refills Continued Medications: Atorvastatin Calcium (Atorvastatin Calcium) 20 Mg Tablet 20 MG PO DAILY, TAB Folic Acid (Folic Acid) 0.4 Mg Tablet 1 MG PO DAILY, TAB Hydroxychloroquine Sulfate (Hydroxychloroquine Sulfate) 200 Mg Tablet 200 MG PO DAILY for 30 Days, TAB Methotrexate Sodium (Methotrexate) 2.5 Mg Tablet 2.5 MG PO QWEEK, TAB Oxybutynin Chloride (Oxybutynin Chloride ER) 10 Mg Tab.er.24 10 MG PO HS Prednisone (Prednisone) 5 Mg Tablet 5 MG PO DAILY, TAB Time spent arranging discharge: -60 minutes ANEUDY ISABEL MD Nov 13, 2024 13:32
--- NOTE | 2024-11-13 13:37 | NUR ---
Patient was discharged, all discharge documentation and personal items were taken by patient and daughter. Patient informed to follow up with primary care provider in 3-5 days and with wraparound facilitator in 1-2 weeks. Discharge instructions from Dr. Sanchez provided to patient, new scripts sent to [facility] in [place], medication dosage and reason explained to patient and daughter. IV was removed, patient transported out of facility via wheelchair by Nurse Bowers.
[2024-11-13] MEDS ORDERED: atorVAStatin 20 MG TABLET PO SCH (21:00)
--- NOTE | 2024-11-16 12:08 | NUR ---
Transitional Phone Call Patient readmitted 11/14/2024, room 332, c/o euglycemic DKA, hypoglycemia and UTI.
[2024-11-16] MEDS ORDERED: METH2.5T6 PO (17:54)
[2024-11-18] MEDS ORDERED: MAGN400T53 PO (11:48)
[2024-11-18] MEDS ORDERED: POTA-364 PO (11:48)
[2024-11-18] MEDS ORDERED: ONDA-104 PO (11:51)
== END 2024-11-13 14:00 | disposition home or self-care (01) | DRG 638 ==
LOC: EDH 09:53 → EDHIP 11:52 → 2CH 23:28
PROVIDERS: ADMIT Internal Medicine; ATTEND Internal Medicine
DX: E11.10 Type 2 diabetes mellitus with ketoacidosis without coma (principal); K92.1 Melena; N30.00 Acute cystitis without hematuria; I10 Essential (primary) hypertension; E78.00 Pure hypercholesterolemia, unspecified; B96.20 Unspecified Escherichia coli [E. coli] as the cause of diseases classified elsewhere; D64.9 Anemia, unspecified; T38.0X5A Adverse effect of glucocorticoids and synthetic analogues, initial encounter; Z79.52 Long term (current) use of systemic steroids; Z83.3 Family history of diabetes mellitus; Z79.899 Other long term (current) drug therapy
CPT/HCPCS: 36415; 36600; 70450; 71045; 80048; 80076; 80305; 81001; 82010; 82270; 82550; 82803; 82948; 83036; 83605; 83615; 83735; 83880; 84145; 85014; 85018; 85025; 85027; 85610; 85651; 85730; 86140; 86850; 86900; 86901; 87086; 87186; 96361; 96372; 96374; 99291; G0378; J0696; J1815; J1885; J2405; J2470; J3475; J3480; J7030; J7512

== ENCOUNTER 2024-11-23 13:28 | Emergency (ER) | payer BC ==
[~2024-11-23] VITALS: Ht 152.4 cm; Wt 67.7 kg
[~2024-11-23 13:28] MED LIST: ATOR20TA65 PO; FOLI0.4T6 PO; HYDR200T75 PO; MAGN400T53 PO; METF-1151 PO; METH2.5T6 PO; ONDA-104 PO; OXYB10TA30 PO; POTA-364 PO; PRED5TAB PO
--- NOTE | 2024-11-23 14:05 | EKG ---
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
[2024-11-23 14:15] LABS: APPEARANCE,URINE CLEAR (CLEAR); GLUCOSE, URINE (UA) NEGATIVE (NEGATIVE); LEUKOCYTE ESTERASE ,URINE 25 Leu/uL (NEGATIVE); NITRATE,URINE NEGATIVE (NEGATIVE); OCCULT BLOOD,URINE NEGATIVE (NEGATIVE)
[2024-11-23 14:22] LABS: ADD UA MICROSCOPIC YES
[2024-11-23 14:32] LABS: SQUAMOUS EPITHELIAL CELL,UR RARE /HPF (0-2)
[2024-11-23 14:42] LABS: IMMATURE GRANULOCYTE ABSOLUTE 0.08 K/uL (0-1); NUCLEATED RED BLOOD CELLS 0.0 % (0.0-0.19); PLATELET COUNT (AUTO) 355 K/uL (130-400); RED BLOOD CELL COUNT(AUTO) 3.29 MIL/uL (4.00-5.50); RED CELL DISTRIBUTION WIDTH 14.4 % (11.0-15.5); WHITE BLOOD COUNT (AUTO) 7.7 K/uL (4.8-10.8)
[2024-11-23 14:59] LABS: CREATININE 0.6 mg/dL (0.5-1.0); GLOMERULAR FILTR. RATE CALC 101.0 mL/min (>90); GLUCOSE,RANDOM 90.0 mg/dL (70-105); SODIUM SERUM 147.0 mmol/L (136-145); UREA NITROGEN, BLOOD 4.0 mg/dL (7-18)
[2024-11-23 15:03] LABS: ASPARTATE AMINOTRANSFERASE 42.0 U/L (10-37); TOTAL PROTEIN, SERUM 6.5 g/dL (6.0-8.3)
--- NOTE | 2024-11-23 15:50 | HMCIMG ---
EXAM: CR Chest, 1 View. CLINICAL HISTORY: [facility] COMPARISON: Radiograph dated November 11, 2024 FINDINGS: LUNGS: The lungs show no infiltrate or other acute finding. Mild bibasilar atelectasis. PLEURAL SPACES: No evidence of pleural effusion or pneumothorax. MEDIASTINUM: The cardiomediastinal silhouette is within normal limits. BONES: No acute osseous abnormality. IMPRESSION: No acute cardiopulmonary pathology is evident. /Atco
[2024-11-23] MEDS: 0.9% NACL 500ML IV.SOLN 500 ML IV ONE (16:34)
--- NOTE | 2024-11-23 17:16 | ERN ---
ED Note History of Present Illness Stated Complaint: WEAKNESS Chief Complaint: Fatigue Time Seen by MD: 13:36 Dictation: 64-year-old female presenting to the emergency department with generalized weakness and nausea, patient denies any fever had a recent admission for eleva lolis sugars and UTI however currently not have any dysuria no fever no chest pain or shortness of breath. Allergies: Coded Allergies: No Known Drug Allergies (Unverified Allergy, Unknown, 11/11/24) Home Meds Active Scripts Ondansetron HCl (Ondansetron HCl) 4 Mg Tablet, 1 TAB PO Q6HPRN PRN for nausea/vomiting for 10 Days, #20 TAB 0 Refills Prov:PATRICIA ORLANDO MD 11/18/24 Magnesium Oxide (Magnesium Oxide) 400 Mg Tablet, 1 TAB PO BID for 4 Days, #8 TAB 0 Refills Prov:PATRICIA ORLANDO MD 11/18/24 Potassium Chloride (Potassium Chloride) 20 Meq Tablet.er, 20 MEQ PO DAILY for 7 Days, #7 TAB Prov:PATRICIA ORLANDO MD 11/18/24 Metformin HCl (Metformin HCl ER) 1,000 Mg [id number], 1 TAB PO BID for diabetes for 30 Days, #60 TAB 0 Refills Prov:ANEUDY ISABEL MD 11/13/24 Reported Medications Methotrexate Sodium (Methotrexate) 2.5 Mg Tablet, 6 TAB PO QWEEK, TAB 0 Refills 11/16/24 Oxybutynin Chloride (Oxybutynin Chloride ER) 10 Mg Tab.er.24, 10 MG PO HS 11/11/24 Folic Acid (Folic Acid) 0.4 Mg Tablet, 1 MG PO DAILY, TAB 11/11/24 Hydroxychloroquine Sulfate (Hydroxychloroquine Sulfate) 200 Mg Tablet, 200 MG PO DAILY for 30 Days, TAB 11/11/24 Prednisone (Prednisone) 5 Mg Tablet, 5 MG PO DAILY, TAB 11/11/24 Atorvastatin Calcium (Atorvastatin Calcium) 20 Mg Tablet, 20 MG PO DAILY, TAB 11/11/24 Discontinued Reported Medications Methotrexate Sodium (Methotrexate) 2.5 Mg Tablet, 2.5 MG PO QWEEK, TAB 11/11/24 Discontinued Scripts Cephalexin Monohydrate (Keflex) 500 Mg Cap, 1 CAP PO BID for 7 Days, #14 CAP 0 Refills Prov:ANEUDY ISABEL MD 11/13/24 Past Medical History Past Medical History: Diabetes-Type II, High Cholesterol, Hypertension, Other Additional Past Medical Hx: RHEUMATOID ARTHIRITIS. Surgical History: Surgical History Other: BACK SX History: Not Applicable Review of System Dictation Constitutional: Negative for fever,chills, and weight loss Eyes: Negative for injury, pain,redness, and discharge ENT: Negative for injury,pain or swelling Cardiovascular: Negative for chest pain, palpitations, and edema Respiratory: Negative for shortness of breath, cough, and wheezing, Abdomen/GI: Negative for abdominal pain, positive for nausea Back: Negative for injury and pain : Negative for injury, bleeding and discharge MS/Extremity: Negative for injury and deformity Skin: Negative for rash, and discoloration Neuro: Per HPI Initial Vital Sign VS Vital Signs Date Time Temp Pulse Resp B/P (MAP) Pulse Ox O2 Delivery O2 Flow Rate FiO2 11/23/24 13:33 99.0 97 16 146/77 100 Room Air 0 11/23/24 14:32 21 Physical Exam Dictation General: awake, alert, NAD Head/Face: Normocephalic, atraumatic Eyes: PERRL, EOMI, vision at baseline ENT: oral cavity clear, TMs clear, no signs of infection Neck: Trachea midline, supple, no nuchal rigidity Cardiovascular: RRR, normal S1/S2, No MRGs, no JVD Respiratory: CTAB, no respiratory distress, No rales or wheezes Abdomen: Soft, non-tender, non-distended, normal bowel sounds, no guarding or rebound. Skin: Warm, dry, normal turgor, no rash MS/Extremity: Pulses equal, no cyanosis, neurovascular intact, FROM Neuro: COAx4, GCS 15, strength 5/5, CN 2-12 intact, normal cerebellar exam, normal gait, Psych: Normal behavior, mood, and affect normal Results (Laboratory/Radiology) Laboratory/Radiology Laboratory Tests Test 11/23/24 13:46 11/23/24 14:31 Urine Color COLORLESS (YELLOW) Urine Appearance CLEAR (CLEAR) Urine pH 6.0 (5.0-8.0) Urine Specific [place] 1.004 (1.001-1.031) Urine Protein NEGATIVE mg/dL (NEGATIVE) Urine Glucose (UA) NEGATIVE mg/dL (NEGATIVE) Urine Ketones NEGATIVE mg/dL (NEGATIVE) Urine Occult Blood NEGATIVE (NEGATIVE) Urine Nitrate NEGATIVE (NEGATIVE) Urine Bilirubin NEGATIVE mg/dL (NEGATIVE) Urine Urobilinogen 0.2 mg/dL (0.2-1.0) Urine Leukocyte Esterase 25 Andie/uL (NEGATIVE) H Urine RBC 0-1 /HPF (0-1) Urine WBC 2-5 /HPF (0-1) H Urine Squamous Epithelial Cells RARE /HPF (0-2) Urine Bacteria None /HPF (None Seen) White Blood Count 7.7 K/uL (4.8-10.8) Red Blood Count 3.29 MIL/uL (4.00-5.50) L Hemoglobin 10.8 g/dL (12.0-16.0) L Hematocrit 33.2 % (36-48) L Mean Corpuscular Volume 100.9 fL (79-99) H Mean Corpuscular Hemoglobin 32.8 pg (27.0-33.0) Mean Corpuscular Hemoglobin Concent 32.5 g/dL (32.0-36.0) Red Cell Distribution Width 14.4 % (11.0-15.5) Platelet Count 355 K/uL (130-400) Mean Platelet Volume 10.3 fL (7.5-10.5) Immature Granulocyte % (Auto) 1.0 % (0-1) Neutrophils (%) (Auto) 57.4 % (40.0-77.0) Lymphocytes (%) (Auto) 30.1 % (21.0-51.0) Monocytes (%) (Auto) 10.2 % (3.0-13.0) Eosinophils (%) (Auto) 0.9 % (0.0-8.0) Basophils (%) (Auto) 0.4 % (0.0-5.0) Neutrophils # (Auto) 4.4 K/uL (1.8-7.7) Lymphocytes # (Auto) 2.3 K/uL (1.0-4.8) Monocytes # (Auto) 0.8 K/uL (0.1-1.0) Eosinophils # (Auto) 0.07 K/uL (0.00-0.70) Basophils # (Auto) 0.03 K/uL (0.00-0.20) Absolute Immature Granulocyte (auto 0.08 K/uL (0-1) Nucleated Red Blood Cells 0.0 % (0.0-0.19) Sodium Level 147 mmol/L (136-145) H Potassium Level 3.7 mmol/L (3.5-5.1) Chloride Level 110 mmol/L (101-111) Carbon Dioxide Level 24 mmol/L (21-32) Blood Urea Nitrogen 4 mg/dL (7-18) L Creatinine 0.6 mg/dL (0.5-1.0) Glomerular Filtration Rate Calc 101 mL/min (>90) Random Glucose 90 mg/dL (70-105) Lactic Acid Level 1.9 mmol/L (0.8-2.5) Total Calcium 9.5 mg/dL (8.5-10.1) Total Bilirubin 0.4 mg/dL (0.2-1.0) Direct Bilirubin 0.1 mg/dL (0.0-0.3) Aspartate Amino Transf (AST/SGOT) 42 U/L (10-37) H Alanine Aminotransferase (ALT/SGPT) 45 U/L (12-78) Alkaline Phosphatase 95 U/L (50-136) Troponin I High Sensitivity 8 ng/L (4-50) Total Protein 6.5 g/dL (6.0-8.3) Albumin 2.8 g/dL (3.5-5.0) L Lipase 25 U/L (16-77) Labs Reviewed?: Yes EKG Comment: Heart rate 93 normal sinus rhythm normal intervals no STEMI or STEMI equivalent X-RAY Comment: no acute process noted on CXR ED Course ED Course Orders Procedure Category Date Status Time 12 Lead Ekg Tracing- EKG 11/23/24 Complete Technical 13:51 Basic Metabolic Panel LAB 11/23/24 Complete 13:51 Blood Cult BECCA 11/23/24 In Process 13:51 Cbc With Differential LAB 11/23/24 Complete 13:51 Hepatic Function Panel LAB 11/23/24 Complete 13:51 Lactic Acid LAB 11/23/24 Complete 13:51 Lipase LAB 11/23/24 Complete 13:51 Troponin I High LAB 11/23/24 Complete Sensitivity 13:51 Urinalysis Profile LAB 11/23/24 Complete 13:51 Chest 1vw RAD 11/23/24 Resulted 13:51 Ondansetron 4mg Inj PHA 11/23/24 Complete (Zofran 4mg Inj) 16:30 0.9% Nacl 500ml PHA 11/23/24 Complete Iv.Soln (Ns 500ml 16:30 Current Medications Medications (Trade) Dose Ordered Sig/Rajani Route PRN Reason Start Time Stop Time Status Last Admin Dose Admin Ondansetron HCl (zoFRAN 4MG INJ) 4 mg ONCE ONCE IVP 11/23/24 16:30 11/23/24 16:31 DC 11/23/24 16:34 Sodium Chloride 500 ml @ 0 mls/hr ONCE ONCE IV 11/23/24 16:30 11/23/24 16:31 DC 11/23/24 16:34 Vital Signs Date Time Temp Pulse Resp B/P (MAP) Pulse Ox O2 Delivery O2 Flow Rate FiO2 11/23/24 15:30 98.8 84 18 147/74 100 Room Air* 0 21 11/23/24 14:32 72 18 135/62 98 Room Air* 0 21 11/23/24 13:33 99.0 97 16 146/77 100 Room Air 0 Medical Decision Making MDM 64-year-old female presenting to emergency department generalized weakness and nausea, stable exam is stable workup cardiac blood work and urine was clear symptoms improved has prescriptions for home patient is not in DKA or having UTI today. DX & DISP Disposition: Discharge Departure Impression: Primary Impression: Nausea & vomiting Condition: Stable Referrals: KIRILL PICKETT DO (PCP) VALENTINE SOLIS MD Nov 23, 2024 17:16
[2024-11-23 17:30] VITALS: BP 142/71; PULSE 84; RESP 18; TEMP 98.7; O2SAT 100
== END 2024-11-23 17:38 | disposition home or self-care (01) ==
LOC: EDH 13:28
DX: R11.2 Nausea with vomiting, unspecified (principal); E11.9 Type 2 diabetes mellitus without complications; E78.00 Pure hypercholesterolemia, unspecified; I10 Essential (primary) hypertension; Z79.52 Long term (current) use of systemic steroids; Z79.84 Long term (current) use of oral hypoglycemic drugs; Z79.899 Other long term (current) drug therapy
CPT/HCPCS: 99284; 96374; 71045; 80076; 84484; 80048; 83690; 85025; 87040 ×2; 83605; 81001; 36415; 93005; J7040; J2405